=== PATIENT | female | born 1950 | race Caucasian/White ===

== ENCOUNTER → 2016-09-21 | Outpatient (CLI) | payer OTHER ==
[~2016-09-21] MED LIST: CALC8.5C PO; CIPR-255 PO; DICL1GEL12 TOP; HYDR-5688 PO; LACT10CA3 PO; METR-163 PO; ONDA4TAB10 SL; SIMV20TA2 PO
--- NOTE | 2016-09-21 16:38 | MAMMOGRAPHY REPORT ---
BILATERAL DIGITAL SCREENING MAMMOGRAM WITH CAD: 09/21/2016 CLINICAL HISTORY: Routine screening. Patient has no complaints. TECHNIQUE: Bilateral CC and MLO views were obtained. Current study was also evaluated with a Comput er Aided Detection (CAD) system. COMPARISON: Comparison is made to exams dated: 09/18/2015 mammogram, 09/13/2013 mammogram, 09/14/2014 mammogram, 09/07/2012 mammogram, 09/07/2011 mammogram, and 09/10/2010 mammogram - [facility]. BREAST COMPOSITION: There are scattered areas of fibroglandular density in both breasts. FINDINGS: There are stable bilateral round and punctate microcalcifications. No suspicious mass, ar chitectural distortion or cluster of microcalcifications is seen. IMPRESSION: ACR BI-RADS CATEGORY 1: NEGATIVE There is no mammographic evidence of malignancy. A 1 year screening mammogram is recommended. The p atient will receive written notification of the results. Approximately 10% of breast cancers are not detected with mammography. A negative mammographic repor t should not delay biopsy if a clinically suggestive mass is present. Marilu Quezada M.D. ay/:09/21/2016 16:23:16 Boat Dispatcher: Taya JIMENEZ(Kristian)(Shital), [facility] letter sent: Normal 1/2 BI-RADS Code: ACR BI-RADS Category 1: Negative
== END | disposition home or self-care (01) ==
LOC: C.MAMM 09:42
PROVIDERS: ATTEND Family Medicine
DX: Z12.31 Encounter for screening mammogram for malignant neoplasm of breast (principal)

== ENCOUNTER 2016-10-10 01:01 | Emergency (ER) | payer OTHER ==
[~2016-10-10] VITALS: Ht 162.6 cm; Wt 68.4 kg
[~2016-10-10 01:01] MED LIST changes: -CIPR-255 PO; -DICL1GEL12 TOP; -HYDR-5688 PO; -LACT10CA3 PO; -METR-163 PO; -ONDA4TAB10 SL
[2016-10-10 01:02] VITALS: TEMP 37.2; Ht 162.6 cm; Wt 68.4 kg
[2016-10-10] MEDS ORDERED: SODIUM CHLORIDE 0.9% 1000ML 1,000 ML IV STA (01:18)
[2016-10-10] MEDS ORDERED: ONDANSETRON INJ 2 MG/ML 2 ML VIAL IV STA (01:18)
[2016-10-10] MEDS ORDERED: MoRPHine SULFATE 4 MG/ML 1 ML CARP\\VIAL IV STA ×2 (01:18→02:34)
[2016-10-10] MEDS ORDERED: OPTIRAY 320 IV PRN (01:30)
[2016-10-10 01:41] LABS: HEMATOCRIT 37.8 % (37-47); MEAN CORPUSCULAR HEMOGLOBIN 30.5 pg (25-34); MEAN CORPUSCULAR HGB CONC 33.9 g/dl (32-36); MEAN PLATELET VOLUME 10.1 fL (7.4-10.4); PLATELET COUNT 249 K/uL (130-400); WHITE BLOOD COUNT 17.08 K/uL (4.8-10.8)
[2016-10-10] MEDS ORDERED: LACT10CA3 PO (01:48)
[2016-10-10] MEDS ORDERED: DICL1GEL12 TOP (01:48)
[2016-10-10 02:01] LABS: BUN/CREATININE RATIO 17.6 (10-20); CALCIUM 9.3 mg/dl (8.5-10.1); CREATININE 0.69 mg/dl (0.60-1.20); POTASSIUM 3.4 mmol/L (3.5-5.1)
[2016-10-10 02:03] LABS: ALB/GLOB RATIO 1.1 (0.9-2); URINE APPEARANCE CLEAR (CLEAR); URINE COLOR DK YELLOW; URINE EPITHELIAL CELL AUTO >30 /lpf (0-5); URINE NITRITE NEG (NEG); URINE SPECIFIC GRAVITY 1.021 (1.000-1.030); UROBILINOGEN NEG (NEG); ZZUR CULT IF INDIC CLEAN CATCH NO
[2016-10-10 02:04] LABS: BASO % 0.2 %; BASO ABS # 0.03 K/uL (0-0.2); COMPLETE YES; EOS % 0.4 %; IG% 0.2 %; LYMPH % 10.9 %; LYMPH ABS # 1.87 K/uL (1.2-3.4); MONO % 9.1 %; NEUT % 79.2 %
[2016-10-10 02:11] LABS: MANUAL MICROSCOPIC REQUIRED? NO; REVIEW REQ? NO; URINE BILIRUBIN NEG (NEG)
[2016-10-10] MEDS ORDERED: METRONIDAZOLE 250 MG TAB PO STA (03:38)
[2016-10-10] MEDS ORDERED: HYDR-5688 PO (03:43)
[2016-10-10] MEDS ORDERED: CIPR-255 PO (03:43)
[2016-10-10] MEDS ORDERED: ONDA4TAB10 SL (03:43)
[2016-10-10] MEDS ORDERED: METR-163 PO (03:43)
[2016-10-10] MEDS ORDERED: CIPROFLOXACIN 500MG HOME PACK PO ONE (03:45)
[2016-10-10] MEDS ORDERED: ONDANSETRON HOME PACK 4MG OD TAB PO ONE (03:45)
[2016-10-10] MEDS ORDERED: NORCO 5/325MG HOME PACK PO ONE (03:45)
--- NOTE | 2016-10-10 03:46 | EMERGENCY ROOM VISIT NOTE ---
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 reports nausea, no vomiting. states she has had cloudy urine. reprots constipation and diarrhea before she came. abd soft, tender in left lower quad. History of Present Illness The patient is a 66 year old female who presents to the Emergency Room with complaints of lower abdominal cramping. The patient states that she has had pain for the past 3 days. She reports it as a cramping sensation in her lower abdomen and is worse on the left side. She rates the discomfort a 6/10. The pain is slightly worse when she is lying down. She has been nauseous, but denies any vomiting. She reports she has been mildly constipated. She denies any fevers/chills. She has had a decreased appetite. She denies urinary symptoms or blood in the stools. She denies any history of abdominal surgery. Review of Systems A complete 10-point Review of Systems was discussed with the patient, with pertinent positives and negatives listed in the History of Present Illness. All remaining Review of Systems questions can be considered negative unless otherwise specified. Past Medical/Surgical History Medical Problems: (1) Hyperlipidemia (2) Hysterectomy Social History Smoking Status: Former Smoker Housing Status: lives with family Current/Historical Medications Scheduled Ciprofloxacin Hcl (Cipro), 500 MG PO BID Lactobacillus-Inulin (Culturelle), 1 CAP PO DAILY Metronidazole (Flagyl), 500 MG PO TID Ondasetron Odt (Zofran Odt), 4 MG SL Q6H Simvastatin (Zocor), 20 MG PO QPM Scheduled PRN Diclofenac Sodium (Topical) (Voltaren 1% Top Gel), 1 APPLN TOP BID PRN for ARTHRITIC PAIN Hydrocodone/Acetaminophen 5MG/325MG (Shell 5MG/325MG), 1-2 TABLET PO Q4H PRN for Pain Allergies Coded Allergies: No Known Allergies (Verified , 10/10/16) Physical Exam Vital Signs Date Time Temp Pulse Resp B/P Pulse Ox O2 Delivery O2 Flow Rate FiO2 10/10/16 04:39 83 18 130/83 95 10/10/16 03:51 78 18 151/82 94 Room Air 10/10/16 02:33 78 18 166/88 95 Room Air 10/10/16 01:57 79 18 94 Room Air 10/10/16 01:02 37.2 87 18 166/92 97 Room Air Physical Exam VITALS: Vitals are noted on the nurse's note and reviewed by myself. Vital signs stable. GENERAL: This is a 66-year-old female, in no acute distress, nondiaphoretic, well-developed well-nourished. SKIN: Capillary reflex less than 2 seconds. HEENT: Normocephalic. PERRLA. EOMI. Nares patent. Mucous membranes moist. Neck is supple without nuchal rigidity. HEART: Regular rate and rhythm without murmurs gallops or rubs. LUNGS: Clear to auscultation bilaterally without wheezes, rales or rhonchi. ABDOMEN: Positive bowel sounds x 4. Soft, nondistended. There is moderate tenderness to palpation of the left lower quadrant. No guarding or rebound tenderness. NEURO: Patient was alert and oriented to person place and time. Medical Decision & Procedures ER Provider Diagnostic Interpretation: CT ABDOMEN & PELVIS: Acute diverticulitis at the junction of the descending and sigmoid colon with colonic wall thickening and pericolonic edema. No free air. No evidence of abscess. Radiologist: Gem Paz M.D. Laboratory Results 10/10/16 01:27 Red Blood Count 4.20, Mean Corpuscular Volume 90.0, Mean Corpuscular Hemoglobin 30.5, Mean Corpuscular Hemoglobin Concent 33.9, Mean Platelet Volume 10.1, Neutrophils (%) (Auto) 79.2, Lymphocytes (%) (Auto) 10.9, Monocytes (%) (Auto) 9.1, Eosinophils (%) (Auto) 0.4, Basophils (%) (Auto) 0.2, Neutrophils # (Auto) 13.53, Lymphocytes # (Auto) 1.87, Monocytes # (Auto) 1.55, Eosinophils # (Auto) 0.06, Basophils # (Auto) 0.03 10/10/16 01:27 Test 10/10/16 01:27 White Blood Count 17.08 K/uL (4.8-10.8) Red Blood Count 4.20 M/uL (4.2-5.4) Hemoglobin 12.8 g/dL (12.0-16.0) Hematocrit 37.8 % (37-47) Mean Corpuscular Volume 90.0 fL (80-100) Mean Corpuscular Hemoglobin 30.5 pg (25-34) Mean Corpuscular Hemoglobin Concent 33.9 g/dl (32-36) Platelet Count 249 K/uL (130-400) Mean Platelet Volume 10.1 fL (7.4-10.4) Neutrophils (%) (Auto) 79.2 % Lymphocytes (%) (Auto) 10.9 % Monocytes (%) (Auto) 9.1 % Eosinophils (%) (Auto) 0.4 % Basophils (%) (Auto) 0.2 % Neutrophils # (Auto) 13.53 K/uL (1.4-6.5) Lymphocytes # (Auto) 1.87 K/uL (1.2-3.4) Monocytes # (Auto) 1.55 K/uL (0.11-0.59) Eosinophils # (Auto) 0.06 K/uL (0-0.5) Basophils # (Auto) 0.03 K/uL (0-0.2) RDW Standard Deviation 40.1 fL (36.4-46.3) RDW Coefficient of Variation 12.2 % (11.5-14.5) Immature Granulocyte % (Auto) 0.2 % Immature Granulocyte # (Auto) 0.04 K/uL (0.00-0.02) Urine Color DK YELLOW Urine Appearance CLEAR (CLEAR) Urine pH 5.0 (4.5-7.5) Urine Specific [place] 1.021 (1.000-1.030) Urine Protein NEG (NEG) Urine Glucose (UA) NEG (NEG) Urine Ketones 3+ (NEG) Urine Occult Blood 2+ (NEG) Urine Nitrite NEG (NEG) Urine Bilirubin NEG (NEG) Urine Urobilinogen NEG (NEG) Urine Leukocyte Esterase NEG (NEG) Urine WBC (Auto) 1-5 /hpf (0-5) Urine RBC (Auto) 0-4 /hpf (0-4) Urine Hyaline Casts (Auto) 1-5 /lpf (0-5) Urine Epithelial Cells (Auto) >30 /lpf (0-5) Urine Bacteria (Auto) NEG (NEG) Anion Gap 9.0 mmol/L (3-11) Est Creatinine Clear Calc Drug Dose 74.2 ml/min Estimated GFR () 103.7 Estimated GFR (Non- 89.4 BUN/Creatinine Ratio 17.6 (10-20) Calcium Level 9.3 mg/dl (8.5-10.1) Total Bilirubin 1.4 mg/dl (0.2-1) Aspartate Amino Transf (AST/SGOT) 13 U/L (15-37) Alanine Aminotransferase (ALT/SGPT) 20 U/L (12-78) Alkaline Phosphatase 76 U/L (45-117) Total Protein 7.5 gm/dl (6.4-8.2) Albumin 3.9 gm/dl (3.4-5.0) Globulin 3.6 gm/dl (2.5-4.0) Albumin/Globulin Ratio 1.1 (0.9-2) Lipase 128 U/L (73-393) Medications Administered Medications (Trade) Dose Ordered Sig/Flori Route Start Time Stop Time Status Last Admin Dose Admin Sodium Chloride (Nss 1000ml) 1,000 ml @ 999 mls/hr Q1H1M STAT IV 10/10/16 01:18 10/10/16 02:18 DC 10/10/16 01:51 999 MLS/HR Ondansetron HCl (Zofran Inj) 4 mg NOW STAT IV 10/10/16 01:18 10/10/16 01:21 DC 10/10/16 01:50 4 MG Morphine Sulfate (MoRPHine SULFATE INJ) 4 mg NOW STAT IV 10/10/16 01:18 10/10/16 01:21 DC 10/10/16 01:50 4 MG Morphine Sulfate (MoRPHine SULFATE INJ) 4 mg NOW STAT IV 10/10/16 02:34 10/10/16 02:35 DC 10/10/16 02:40 4 MG Ciprofloxacin (Cipro 500MG Home Pack) 1 homepack UD ONCE PO 10/10/16 03:45 10/10/16 03:46 DC 10/10/16 04:26 1 HOMEPACK Metronidazole (Flagyl Tab) 1,000 mg NOW STAT PO 10/10/16 03:38 10/10/16 03:41 DC 10/10/16 04:32 1,000 MG Acetaminophen/ Hydrocodone Bitart (Shell 5/325mg Home Pack) 1 homepack UD ONCE PO 10/10/16 03:45 10/10/16 03:46 DC 10/10/16 04:25 1 HOMEPACK Ondansetron HCl (ZOFRAN ODT 4MG Home Pack) 1 homepack UD ONCE PO 10/10/16 03:45 10/10/16 03:46 DC 10/10/16 04:24 1 HOMEPACK ED Course The patient was evaluated as above. Labs were drawn and IV access was obtained. Patient was medicated with 4 mg morphine IV, 4 mg Zofran IV, and 1 L normal saline solution. CT of the abdomen and pelvis was performed and read by radiology as above. Patient was reevaluated and had continued pain. She was given 4 mg morphine. Patient was reevaluated and was much more comfortable. Findings were discussed. She was given home packs of Cipro and Flagyl. Discharge instructions were reviewed with the patient. The patient verbalized understanding of my assessment and treatment plan and was discharged home in good condition. Medical Decision Differential diagnosis includes diverticulitis, appendicitis, colitis, gastroenteritis, among others. The patient is a 66-year-old female who presents today complaining of left lower quadrant pain. Labs revealed a leukocytosis of 17,000. No concerning anemia or electrolyte abnormalities. Urinalysis was not suggestive of infection. CT scan showed diverticulitis without complication. The patient prefers to be treated as an outpatient. Conservative measures were discussed. She will be placed on Cipro and Flagyl and was instructed to follow-up with her primary care provider. The patient was independently evaluated by Dr. Lunsford, ED attending physician, who agreed with my assessment and treatment plan. Based on the patient's presentation and work up, I feel the patient is stable for outpatient treatment. The patient was educated to the emergency department for any worsening of their current condition or new/concerning symptoms. She will follow up with her PCP. Impression Primary Impression: Diverticulitis Departure Information Dispostion Home / Self-Care Condition GOOD Prescriptions Ondasetron Odt (ZOFRAN ODT) 4 Mg Tab 4 MG SL Q6H for Nausea, #15 TAB Prov: Shahla Pineda PA-C 10/10/16 Hydrocodone/Acetaminophen 5MG/325MG (Shell 5MG/325MG) Tab 1-2 TABLET PO Q4H Y for Pain, #15 TAB For Initial Treatment Prov: Shahla Pineda PA-C 10/10/16 Metronidazole (Flagyl) 500 Mg Tab 500 MG PO TID for 12 Days, #36 TAB Prov: Shahla Pineda .PITER 10/10/16 Ciprofloxacin Hcl (CIPRO) 500 Mg Tab 500 MG PO BID for 12 Days, #24 TAB Prov: Shahla Pineda PA-C 10/10/16 Referrals No Doctor, Assigned (PCP) Patient Instructions My [facility] Additional Instructions You have been treated in the Emergency Department for diverticulitis. Laboratory results and imaging studies have ruled out any emergent causes for your abdominal pain which would warrant admission or surgery. You have been prescribed Shell to be used for pain control. This is a narcotic medication. You cannot drive or consume alcohol while on this medicine. This medicine should only be used for pain that cannot be controlled with over-the- counter pain medicines. You have been prescribed Zofran to be used for any nausea or vomiting. Take as prescribed. You were prescribed ciprofloxacin to be taken twice daily as prescribed. This is an antibiotic. All antibiotics have the potential to cause diarrhea. Stop this medication and contact a medical provider if you were to develop any significant adverse side effects including: wheezing, shortness of breath, passing out, vomiting, or a diffuse rash. Always take antibiotics as directed and COMPLETE the ENTIRE course regardless of the improvement of your symptoms. You were prescribed Flagyl to be taken 3 times daily as prescribed. This is an antibiotic. All antibiotics have the potential to cause diarrhea. Stop this medication and contact a medical provider if you were to develop any significant adverse side effects including: wheezing, shortness of breath, passing out, vomiting, or a diffuse rash. Always take antibiotics as directed and COMPLETE the ENTIRE course regardless of the improvement of your symptoms. You may not drink alcohol taking this medication. Drinking alcohol will cause severe nausea and vomiting. For pain control, you can use the following [id number]-plb-sjywfek medicines (if >12 yo): - Regular strength (325mg/tab) Tylenol (acetaminophen) 2 tabs every 4-6 hours as needed. Do not exceed 12 tablets in a 24 hour period. Avoid taking more than 4 grams (4000 mg) of Tylenol per day. This includes any other sources of acetaminophen you may take on a regular basis. - Regular strength (200 mg/tab) Advil (ibuprofen) 1-2 tabs every 4-6 hours as needed. Do not exceed a dose of 3200 mg per day. Clear liquid diet for the next 3-4 days, then advance to solid foods as tolerated. As with any trip to the Emergency Department, you should follow-up with your Primary Care Provider from today's visit. Return to the emergency department if your symptoms persist despite treatment plan outlined above or if the following symptoms occur: Worsening pain, vomiting or fevers. Problem Qualifiers Primary Impression: Diverticulitis Diverticulitis site: large intestine Diverticulitis bleeding: without bleeding Diverticulitis complication: without perforation or abscess Qualified Codes: K57.32 - Diverticulitis of large intestine without perforation or abscess without bleeding
[2016-10-10] MEDS ORDERED: EMPTY 8 DRAM VIAL ONE (03:56)
--- NOTE | 2016-10-10 04:25 | EMERGENCY ROOM VISIT NOTE ---
ED Visit Note First contact with patient: 01:10 I saw this patient in conjunction with Shahla Pineda PA-C. I agree with her decision-making and treatment plan.
[2016-10-10 04:39] VITALS: BP 130/83; PULSE 83; O2SAT 95
--- NOTE | 2016-10-10 07:14 | DIAGNOSTIC IMAGING REPORT ---
CT ABD/PELVIS IV CONTRAST ONLY CLINICAL HISTORY: Left lower quadrant abdominal pain COMPARISON STUDY: 11/16/2012 TECHNIQUE: Following the IV administration of 91 mL of Optiray-320, CT scan of the abdomen and pelvis was performed from the lung bases to the proximal femurs. Images are reviewed in the axial, sagittal, and coronal planes. IV contrast was administered without complication. CT DOSE: 308.58 mGy.cm FINDINGS: Lower chest: There is mild basilar atelectasis. Liver: There is mild hepatic steatosis. No focal masses are visualized. The portal vein appears patent. Gallbladder: Unremarkable. Spleen: Normal in size and attenuation. Pancreas: The pancreatic duct remains at the upper limits of normal in size. Masses are visualized. Adrenal glands: Unremarkable. Kidneys: There is symmetric renal cortical enhancement. The kidneys are normal in size without hydronephrosis. Bowel: There are no transition zones indicate bowel obstruction. There is acute diverticulitis at the descending sigmoid: junction. There is no acute appendicitis. Peritoneum: There is no free air. There is trace free pelvic fluid. Vasculature: The abdominal aorta is normal in course and caliber. Adenopathy: None. Pelvic viscera: The uterus appears surgically absent Skeletal structures: No destructive osseous lesions are seen. IMPRESSION: 1. Acute diverticulitis at the junction of descending and sigmoid colon. Electronically signed by: Mahesh Solis M.D. 10/10/2016 7:12 AM Dictated Date/Time: 10/10/2016 7:08 AM
== END 2016-10-10 04:39 | disposition home or self-care (01) ==
LOC: C.EDB 01:01 → C.EDA 04:39
DX: K57.32 Diverticulitis of large intestine without perforation or abscess without bleeding (principal); E78.5 Hyperlipidemia, unspecified; Z87.891 Personal history of nicotine dependence; Z79.899 Other long term (current) drug therapy

== ENCOUNTER → 2017-04-26 | Outpatient (CLI) | payer OTHER ==
[~2017-04-26] MED LIST changes: -CALC8.5C PO; +CIPR-255 PO; +DICL1GEL12 TOP; +LACT10CA3 PO
--- NOTE | 2017-04-26 08:27 | DIAGNOSTIC IMAGING REPORT ---
R FOOT MIN 3 VIEWS, L FOOT MIN 3 VIEWS HISTORY: 67 years-old Female RIGHT FOOT PAIN acute bilateral foot pain without reported trauma COMPARISON: Right foot radiograph 09/02/2015 TECHNIQUE: 3 views of the bilateral feet for a total of 6 images. FINDINGS: RIGHT: Accessory ossicle or focal marginal osteophytic spurring is again noted involving the medial base of the second metatarsal. The bones are mildly demineralized. Mild calyx valgus deformity with moderate first MTP joint degenerative changes. Moderate degenerative changes are seen throughout the midfoot at the tarsometatarsal joints. Mild soft tissue swelling is noted about the midfoot, greatest adjacent to the fifth MTP joint. Moderate plantar calcaneal enthesophyte. Peripheral vascular calcifications. LEFT: No acute fracture or dislocation. Soft tissue swelling is also noted about the left midfoot greatest near the fifth MTP joint. Moderate first MTP joint degenerative changes. Mild hallux valgus deformity. 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 No acute fracture or dislocation. Moderate plantar enthesophyte about the calcaneus. Vascular calcifications are noted. IMPRESSION: 1. No acute fracture or dislocation of either foot. 2. Mild bilateral hallux valgus deformity with osteopenia and multifocal mild to moderate degenerative changes. 3. Mild soft tissue swelling is noted about the forefoot bilaterally, greatest near the fifth MTP joints. 4. Peripheral vascular disease. The above report was generated using voice recognition software. It may contain grammatical, syntax or spelling errors. Electronically signed by: Meliton Cohen M.D. 04/26/2017 8:25 AM Dictated Date/Time: 04/26/2017 8:21 AM
== END | disposition home or self-care (01) ==
LOC: C.RDSM 08:55
PROVIDERS: ATTEND Physician Assistant
DX: M79.673 Pain in unspecified foot (principal); I73.9 Peripheral vascular disease, unspecified

== ENCOUNTER → 2017-09-27 | Outpatient (CLI) | payer OTHER ==
--- NOTE | 2017-09-28 07:40 | MAMMOGRAPHY REPORT ---
BILATERAL DIGITAL SCREENING MAMMOGRAM TOMOSYNTHESIS WITH CAD: 09/27/2017 CLINICAL HISTORY: Routine screening. Patient has no complaints. TECHNIQUE: Breast tomosynthesis in addition to standard 2D mammography was performed. Current study was also evaluated with a Computer Aided Detection (CAD) system. COMPARISON: Comparison is made to exams dated: 09/21/2016 mammogram, 09/18/2015 mammogram, 09/14/2014 ma mmogram, 09/13/2013 mammogram, 09/07/2011 mammogram, and 09/10/2010 mammogram - [facility]ter. BREAST COMPOSITION: There are scattered areas of fibroglandular density in both breasts. FINDINGS: There are stable intramammary lymph nodes in the lateral left breast. No suspicious mass, architectural distortion or cluster of microcalcifications is seen. IMPRESSION: ACR BI-RADS CATEGORY 1: NEGATIVE There is no mammographic evidence of malignancy. A 1 year screening mammogram is recommended. The pa tient will receive written notification of the results. Approximately 10% of breast cancers are not detected with mammography. A negative mammographic report should not delay biopsy if a clinically suggestive mass is present. Marilu Quezada M.D. ay/:09/27/2017 08:57:20 Investment Professional: Ana JIMENEZ(Kristian)(Shital), [facility] letter sent: Normal 1/2 BI-RADS Code: ACR BI-RADS Category 1: Negative
== END | disposition home or self-care (01) ==
LOC: C.MAMM 08:20
PROVIDERS: ATTEND Family Medicine
DX: Z12.31 Encounter for screening mammogram for malignant neoplasm of breast (principal)

== ENCOUNTER 2023-08-01 12:43 | Inpatient (IN) ==
--- OUTSIDE RECORDS SUMMARY | 2023-08-01 12:48 | External Medical Summary | Summary of Care ---
Author Name Unknown Organization [facility] Address [address] [place] [address] Phone [phone] Care Team Providers Care Manager Employee Relations Name Role Phone Elijah Whittaker MD Primary Care Provider + Reason for Visit * Reason Onset Date Comments Pre Op Discussion 03/17/2023 PAT call Encounter Details Date Type Department Care Team Description 03/17/2023 Telephone OR [facility], Operating Room [facility] [address] [place] [phone] Raheem Yañez MD [facility] [address] Connelly [address] [address] Pre Op Discussion (PAT call) Allergies No known active allergiesdocumented as of this encounter (statuses as of 03/18/2023) Medications Medication Sig Dispensed Refills Start Date End Date Status Diclofenac Sodium 1 % External Gel (Voltaren) APPLY 4 TIMES A DAY NEEDED FOR PAIN NOT TO EXCEED 16 GRAMS TO SINGLE JOINT A DAY 100 g 2 10/15/2021 Active Simvastatin 20 MG Oral Tablet (Zocor)Indications:Dy slipidemia, goal LDL below 100 TAKE 1 TABLET BY MOUTH IN THE EVENING 90 Tablet 0 01/18/2023 Active documented as of this encounter (statuses as of 03/18/2023) Active Problems Problem Noted Date Diverticulitis of colon 03/09/2023 History of 2019 novel coronavirus diseas e (COVID-19) 07/10/2021 Overview: 07/12 vaccinated. 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 Referred for surgery [facility] 2nd opinion Well adult exam 11/15/2018 Overview: Her insurance requires "Dx" code for labs, not screening. 01/08 colon 10mm polyp PATH PEND gavino 3y? History of colon polyps 09/28/2018 Dyslipidemia, goal LDL below 100 011 documented as of this encounter (statuses as of 03/18/2023) Resolved Problems Problem Noted Date Resolved Date Dyslipidemia, goal to be determined 05/30/2009 06/12/2011 Overview: Per Lipid Taxonomy. FAMILY HX- multiple sclerosis: brother, m. 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 ADVANCE DIRECTIVE INFORMATION 02/18/2006 Overview: Pt has a living will and a copy will be supplied, NO KNOWN PROBLEMS 03/09/2005 02/19/2006 documented as of this encounter (statuses as of 03/18/2023) Immunizations Name Administration Dates Next Due COVID-19 mRNA, LNP-s, No Pre serve, 2-Dose Series ([employer]) 03/19/2021,09/14/2020,08/19/2020 COVID-19, LNP-s, No Preserve , Cliff-sucrose, Ages 12+ (Pfizer) 09/30/2021 Covid-19, Mrna, Lnp-s, Pf, B ivalent, 30 Mcg, IM, 12 yrs and above (Pfizer) 06/10/2022 Pneumococcal Conjugate Vacc, 13 Valent (Prevnar) 06/01/2016 Seasonal Influenza, PF, 6 mo ns & Above, IM , (Flulaval) 03/07/2020,04/18/2018,03/15/2017 Seasonal Influenza, Quadriva lent Hd (Fluzone Hd) 03/01/2023,03/23/2022,03/12/2021 Seasonal Influenza, Quadriva lent, No Preserve, IM 03/18/2016 Seasonal Influenza, Split, I IV3, With Preserve, Inj 03/06/2015,03/13/2014,04/11/2013,2011 Seasonal Influenza, Trivalen t, Adjuvanted, 65+ yrs 03/29/2019 TDAP (age 10 and older)(Boostrix) 03/14/2019, Varicella Zoster Vaccine (Adult) 02/27/2011 Zoster Vaccine Recombinant (Shingrix) 06/23/2019 ,04/05/2019 documented as of this encounter Social History Tobacco Use Types Packs/Day Years Used Date Smoking Tobacco: Former Cigarettes 7 Q uit: 06/21/1972 Smokeless Tobacco: Never Comments:smoked for 7 yrs an d quit 1972. Alcohol Use Standard Drinks/Week Comments Yes 0 (1 standard drink = 0.6 oz pur e alcohol) 2-3 beers per night Food Insecurity Answer Date Recorded Within the past 12 months, y ou worried that your food would run out before you got money to buy more. Never true 03/14/2019 Within the past 12 months, t he food you bought just didn't last and you didn't have money to get more. Never true 03/14/2019 Sex Assigned at Date Recorded Not on file Job Start Date Occupation Industry Not on file Not on file Not on file documented as of this encounter Plan of Treatment Upcoming Encounters Date Type Specialty Care Team Description 03/23/2023 Hospital Encounter Surgery Raheem Yañez MD [address] [place] [address], [place] [id number] 03/23/2023 Surgery Surgery Raheem Yañez MD [address] [place] [address], [place] [address] RIGHT EXTRACAPSULAR CATARACT REMOVAL WITH INTRAOCULAR LENS 04/06/2023 Hospital Encounter Surgery Raheem Yañez MD [address] [address] 04/06/2023 Surgery Surgery Raheem Yañez MD [address] [address] LEFT EXTRACAPSULAR CATARACT REMOVAL WITH INTRAOCULAR LENS Scheduled Procedures Name Priority Associated Diagnoses Date/Ti me EXTRACAPSULAR CATARACT REMOVAL WITH INTRAOCULAR LENS Combined forms of age-related cataract of right eye 03/23/2023 2:14 PM EDT EXTRACAPSULAR CATARACT REMOVAL WITH INTRAOCULAR LENS Combined forms of age-related cataract of left eye 04/06/2023 3:38 PM EDT COLONOSCOPY FLEXIBLE PROXIMAL DIAGNOSTIC Recall History of colon polyps Health Maintenance Due Date Last Done Comments Hepatitis C Screening 1968 Pneumococcal Vaccine: 65+ Years (2 - PPSV23 or PCV20) 06/01/2017 06/01/2016 Depression Screening 08/14/2021 08/14/2020 DXA Scan 06/02/2023 06/02/2016 Mammogram 01/07/2024 01/06/2023, 12/19, 08/11/2021, Additional history exists COLONOSCOPY-EVERY 5 YRS AGES 18-100 01/07/2026 01/07/2021, 01/07/2021, 07/01/2015, Additional history exists Lipid Panel 11/28/2026 11/28/2021, 04/0 02/2019, 06/01/2016, Additional history exists DTaP,Tdap,and Td Vaccines (3 - Td or Tdap) 03/14/2029 03/14/2019, 04/14/2013 Zoster Vaccines Completed 06/23/2019, 03/21, 02/27/2011 COVID-19 Vaccine Completed 06/10/2022, 05/2022, 03/19/2021, Additional history exists Influenza Vaccine (FLU shot) Completed 04/2023, 03/23/2022, 03/12/2021, Additional history exists GARDASIL-HPV IMMUNIZATION SERIES Aged Out No longer eligible based on patient's age to complete this topic Hepatitis B Aged Out No longer eligi ble based on patient's age to complete this topic MENINGOCOCCAL (MENACTRA/MENVEO) Aged Out No longer eligible based on patient's age to complete this topic documented as of this encounter Medical Devices Implanted Type Area Strainer Tender Device Identifier Shelf Expiration Date Model / Serial / Lot Clip Quick 2.8mm 230cm - [id number] Implanted:Qty: 1 on 01/07/2021 by Nico Crisostomo MD at ENDOSCOPY [facility] Colon [employer] 08/19/2023 [id number]-202UR.[id number] / [id number] documented as of this encounter Care Teams Manager Employee Relations Relationship Specialty Start Date End Date Elijah Whittaker MD [address] [place] [address] PCP - General Family Medicine 06/29/16 documented as of this encounter
--- OUTSIDE RECORDS SUMMARY | 2023-08-01 12:48 | External Medical Summary | Summary of Care ---
Author Name Unknown Organization [facility] Address [address] [place] [facility] [place] [address] Phone [phone] Care Team Providers Care Raw Products Director Name Role Phone Elijah Whittaker MD Primary Care Provider + Encounter Details Date Type Department Care Team Description 03/01/2023 [facility] [address] [facility] [address] [facility] [address] Arrived Allergies No known active allergiesdocumented as of this encounter (statuses as of 03/01/2023) Medications Medication Sig Dispensed Refills Start Date [...] as of this encounter (statuses as of 03/01/2023) Active Problems Problem Noted Date History of 2019 novel coronavirus diseas e (COVID-19) 07/10/2021 Overview: 07/12 vaccinated. 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 Referred for surgery [facility] 2nd opinion Well adult exam 11/15/2018 Overview: Her insurance requires "Dx" code for labs, not screening. 01/08 colon 10mm polyp PATH PEND gavino 3y? History of colon polyps 09/28/2018 Dyslipidemia, goal LDL below 100 011 documented as of this encounter (statuses as of 03/01/2023) Resolved Problems Problem Noted Date Resolved Date [...] as of this encounter (statuses as of 03/01/2023) Immunizations Name Administration Dates Next Due COVID-19 mRNA, LNP-s, No Pre serve, 2-Dose Series ([employer]) 03/19/2021,09/14/2020,08/19/2020 COVID-19, LNP-s, No Preserve , Cliff-sucrose, [...] Surgery Raheem Yañez MD [address] [place] [address] 03/23/2023 Surgery Surgery Raheem Yañez MD [address] [place] [address], [place] [address] RIGHT EXTRACAPSULAR CATARACT REMOVAL WITH INTRAOCULAR LENS 04/06/2023 Hospital Encounter Surgery Raheem Yañez MD [address] [place] [address] 04/06/2023 Surgery Surgery Raheem Yañez MD [address] [place] [address] LEFT EXTRACAPSULAR CATARACT REMOVAL WITH INTRAOCULAR LENS Scheduled Procedures Name Priority Associated Diagnoses Date/Ti me EXTRACAPSULAR CATARACT REMOVAL WITH INTRAOCULAR LENS Combined forms of age-related cataract of right eye 03/23/2023 2:50 PM EDT EXTRACAPSULAR CATARACT REMOVAL WITH INTRAOCULAR LENS Combined forms of age-related cataract of left eye 04/06/2023 10:35 AM EDT COLONOSCOPY FLEXIBLE PROXIMAL DIAGNOSTIC Recall History of colon polyps Health Maintenance Due Date Last Done Comments Hepatitis C Screening 1968 Pneumococcal Vaccine: 65+ Years (2 - PPSV23 or PCV20) 06/01/2017 06/01/2016 Depression Screening 08/14/2021 08/14/2020 Influenza Vaccine (FLU shot) (#1) 2023 03/01/2023, 03/23/2022, 03/12/2021, Additional history exists DXA Scan 06/02/2023 06/02/2016 Mammogram 01/07/2024 01/06/2023, 12/19, 08/11/2021, Additional history exists COLONOSCOPY-EVERY 5 YRS AGES 18-100 01/07/2026 01/07/2021, 01/07/2021, 07/01/2015, Additional history exists Lipid Panel 11/28/2026 11/28/2021, 04/0 02/2019, 06/01/2016, Additional history exists DTaP,Tdap,and Td Vaccines (3 - Td or Tdap) 03/14/2029 03/14/2019, 04/14/2013 Zoster Vaccines Completed 06/23/2019, 03/21, 02/27/2011 COVID-19 Vaccine Completed 06/10/2022, 05/2022, 03/19/2021, Additional history exists GARDASIL-HPV IMMUNIZATION SERIES Aged Out No longer eligible based on patient's age to complete this topic Hepatitis B Aged Out No longer eligi ble based on patient's age to complete this topic MENINGOCOCCAL (MENACTRA/MENVEO) Aged Out No longer eligible based on patient's age to complete this topic documented as of this encounter Medical Devices Implanted Type Area Industrial Safety And Health Specialist Device Identifier Shelf Expiration Date Model / Serial / Lot Clip Quick 2.8mm 230cm - [id number] Implanted:Qty: 1 on 01/07/2021 by Nico Crisostomo MD at ENDOSCOPY [facility] Colon [employer] 08/19/2023 [id number] / [id number] documented as of this encounter Care Teams Raw Products Director Relationship Specialty Start Date End Date Elijah Whittaker MD [address] [facility] [place] [address] PCP - General Family Medicine 06/29/16 documented as of this encounter
--- OUTSIDE RECORDS SUMMARY | 2023-08-01 12:48 | External Medical Summary | Summary of Care ---
Author Name Unknown Organization [facility] Address [address] [facility] [place] [address] Phone [phone] Care Team Providers Care Saw Sharpener Name Role Phone Elijah Whittaker MD Primary Care Provider + Encounter Details Date Type Department Care Team (Late st Contact Info) Description 04/12/2023 10:30 AM EDT Immunization [facility] [address] [facility] [address] [place] [address] Arrived Allergies No known active allergiesdocumented as of this encounter (statuses as of 04/12/2023) Medications Medication Sig Dispensed Refills Start Date [...] as of this encounter (statuses as of 04/12/2023) Active Problems Problem Noted Date Diagnosed Date Diverticulitis of colon 03/09/2023 History of 2019 novel coronavirus disease (COVID -19) 07/10/2021 Overview: 07/12 vaccinated. 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 Referred for surgery [facility] 2nd opinion Well adult exam 11/15/2018 Overview: Her insurance requires "Dx" code for labs, not screening. 01/08 colon 10mm polyp PATH PEND gavino 3y? History of colon polyps 09/28/2018 Dyslipidemia, goal LDL below 100 06/12/2011 documented as of this encounter (statuses as of 04/12/2023) Resolved Problems Problem Noted Date Diagnosed Date Resolved Date Dyslipidemia, goal to be determined 05/30/2009 06/12/2011 Overview: Per Lipid Taxonomy. FAMILY HX- multiple sclerosi s: brother, m. aunt 11/07/2008 01/05/2018 Benign neoplasm of colon 12/06/200603/2019 Overview: hyprplastic tissue and a small leiomyoma Repeat in 3 years ADVANCE DIRECTIVE INFORMATION 04/30/2006 01/05/2018 Overview: Yes, Patient instructed to provide copy of advance directive for provider to review and to be scanned into Electronic Medical Record PURE HYPERCHOLESTEROLEM 02/19/200605/21 Overview: Per Lipid Taxonomy. ADVANCE DIRECTIVE INFORMATION 02/18/2006 02/19/2006 Overview: Pt has a living will and a copy will be supplied, NO KNOWN PROBLEMS 03/09/2005 02/19/2006 documented as of this encounter (statuses as of 04/12/2023) Immunizations Name Administration Dates Next Due COVID-19 mRNA, LNP-s, No Pre serve, 2-Dose Series ([employer]) 03/19/2021,09/14/2020,08/19/2020 COVID-19, LNP-s, No Preserve , Cliff-sucrose, Ages 12+ (Pfizer) 09/30/2021 COVID-19, MRNA-LNP, 23-24, P F, 30 MCG/0.3 mL, 12 YRS AND ABOVE, IM (PFIZER-Comirnaty) 04/12/2023 Covid-19, Mrna, Lnp-s, Pf, B ivalent, 30 Mcg, IM, 12 yrs and above (Pfizer) 06/10/2022 Pneumococcal Conjugate Vacc, 13 Valent (Prevnar) 06/01/2016 SEASONAL INFLUENZA, PF, 6 M & Above, IM , (FLULAVAL or FLUZONE) 03/07/2020,04/18/2018,03/15/2017 Seasonal Influenza, Quadriva lent Hd (Fluzone [...] pur e alcohol) 2-3 beers per night PHQ-2 Answer Date Recorded PHQ Adult Total Score 0 08/14/2020 Hunger Vital Sign Answer Date Recorded Worried About Running Out of Food in the Last Ye ar Never true 03/14/2019 Ran Out of Food in the Last Year Never true 03/14/2019 Sex and Gender Information Value Date Recorded Sex Assigned at Not on file Gender Identity Not on file Sexual Orientation Not on file Job Start Date Occupation Industry Not on file Not on file Not on file documented as of this encounter Plan of Treatment Scheduled Procedures Name Priority Associated Diagnoses Date/Ti me COLONOSCOPY FLEXIBLE PROXIMAL DIAGNOSTIC Recall History of colon polyps Health Maintenance Due Date Last Done Comments Hepatitis C Screening 1968 Pneumococcal Vaccine: 65+ Years (2 - PPSV23 or PCV20) 06/01/2017 06/01/2016 Depression Screening 08/14/2021 08/14/2020 DXA Scan 06/02/2023 06/02/2016 COLONOSCOPY-EVERY 5 YRS AGES 18-100 01/07/2026 01/07/2021, 01/07/2021, 07/01/2015, Additional history exists DTaP,Tdap,and Td Vaccines (3 - Td or Tdap) 03/14/2029 03/14/2019, 04/14/2013 Zoster Vaccines Completed 06/23/2019, 03/21, 02/27/2011 Influenza Vaccine (FLU shot) Completed 04/2023, 03/23/2022, 03/12/2021, Additional history exists COVID-19 Vaccine Completed 04/12/2023, , 09/30/2021, Additional history exists GARDASIL-HPV IMMUNIZATION SERIES Aged Out No longer eligible based on patient's age to complete this topic Hepatitis B Aged Out No longer eligi ble based on patient's age to complete this topic MENINGOCOCCAL (MENACTRA/MENVEO) Aged Out No longer eligible based on patient's age to complete this topic documented as of this encounter Medical Devices Implanted Type Area Sharepoint Analyst Device Identifier Shelf Expiration Date Model / Serial / Lot Clip Quick 2.8mm 230cm - [id number] Implanted:Qty: 1 on 01/07/2021 by Nico Crisostomo MD at ENDOSCOPY [facility] Colon [employer] 08/19/2023 HX-202UR.A / / [id number] Lens [id number] 12.5mm+21.50 - [id number] - [id number] Implanted:Qty: 1 on 03/23/2023 by Raheem Yañez MD at OR [facility] Right: Eye [employer] 11/18/2025 [id number] / [id number] / [id number] [employer] Implanted:Qty: 1 on 04/06/2023 by Raheem Yañez MD at OR [facility] Left: Eye [employer] 03/20/2025 [id number] / [id number] / [id number] documented as of this encounter Advance Directives Latest Code Status on File Code Status Date Activated Date Inactivated Comments Full Code 04/06/2023 2:03 PM 04/06/2023 8:35 PM Thi s order reflects the patients wishes and were consensually agreed upon. Question Answer Comments Discussion of Advance Directives occurred with: Patient Does the patient have a Living Will? No Does the patient have Health Care Power of Data Center Manager? No Code Status History Code Status Date Activated Date Inactivated Comments Full Code 03/23/2023 1:21 PM 03/23/2023 7:17 PM This order reflects the patients wishes and were consensually agreed upon. Question Answer Comments Discussion of Advance Directives occurred with: Patient Does the patient have a Living Will? No Does the patient have Health Care Power of Data Center Manager? No Care Teams Saw Sharpener Relationship Specialty Start Date End Date Elijah Whittaker MD [address] [place] [address] PCP - General Family Medicine 06/29/16 documented as of this encounter
--- OUTSIDE RECORDS SUMMARY | 2023-08-01 12:48 | External Medical Summary | Summary of Care ---
Author Name Unknown Organization [facility] Address [address] [place] [address] Phone [phone] Care Team Providers [employer] Name Role Phone Elijah Whittaker MD Primary Care Provider + Reason for Visit * Auth/Cert Specialty Diagnoses / Procedures Referred By Contac t Referred To Contact Diagnoses Combined forms of age-related cataract of left eye Combined forms of age-related cataract of left eye [H25.812] Procedures REMOVE CATARACT, INSERT LENS PROSTH LEFT EXTRACAPSULAR CATARACT REMOVAL WITH INTRAOCULAR LENS Referral ID Status Reason Start Date Expiration Date Visits Re quested Visits Authorized [id number] Encounter Details Date Type Department Care Team Description 04/06/2023 Hospital Encounter OR [facility], Operating Room [facility] [address] [place] [id number] Raheem Yañez MD [facility] Tonny Connelly [address] [place] [address] Allergies No known active allergiesdocumented as of this encounter (statuses as of 2023) Medications Medication Sig Dispensed Refills Start Date [...] as of this encounter (statuses as of 2023) Active Problems Problem Noted Date Diverticulitis of colon 03/09/2023 History of 2018 novel coronavirus diseas e (COVID-19) 07/10/2021 Overview: 07/12 vaccinated. 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 Referred for surgery [facility] [place] Well adult exam 11/15/2018 Overview: Her insurance requires "Dx" code for labs, not screening. 01/08 colon 10mm polyp PATH PEND gavino 3y? History of colon polyps 09/28/2018 Dyslipidemia, goal LDL below 100 011 documented as of this encounter (statuses as of 2023) Resolved Problems Problem Noted Date Resolved Date [...] as of this encounter (statuses as of 2023) Immunizations Name Administration Dates Next Due COVID-19 mRNA, LNP-s, No Pre serve, 2-Dose Series (Plasticell) 03/19/2021,09/14/2020,08/19/2020 COVID-19, LNP-s, No Preserve , Cliff-sucrose, [...] on file documented as of this encounter Last Filed Vital Signs Vital Sign Reading Time Taken Comments Blood Pressure 132/63 04/06/2023 4:19 PM EDT Pulse 63 04/06/2023 4:19 PM EDT Temperature 36.7 C (98 F) 04/06/2023 4:19 PM EDT Respiratory Rate 18 04/06/2023 4:19 PM EDT Oxygen Saturation 97% 04/06/2023 4:19 PM EDT Inhaled Oxygen Concentration - - Weight 62.1 kg (137 lb) 04/06/2023 2:11 PM EDT Height 160 cm (5' 3") 03/17/2023 8:38 AM EDT Body Mass Index 24.27 03/23/2023 1:29 PM EDT documented in this encounter Discharge Instructions * Discharge Instr - AVS* Raheem Yañez MD - 03/02/2023 9:26 AM EDT Discharge Date: 04/06/23 You may call Doctor Otilio at during business hours and for after-hours emergencies. Your attending physician at the time of your discharge was: Raheem Yañez MD The information below provides you with the instructions and the list of medications you need to betaking following discharge from the hospital. If you have any questions, please ask before leaving.Please carry this letter with you when you see your doctor in the clinic. Diet: Normal diet Activity: No lifting or pushing or pulling more than 10 lbs for 1 week Driving: Do not drive for 24 hours after surgery . Date you may return to work or school: N/A Follow Up - Return appointment(s):04/07/23 @8:[address] Kumari See your medical receptionist assistant in 1day(s). SPECIAL INSTRUCTIONS EYEDROPS for healing and infection prevention. 8 am (Breakfast) 12 noon (Lunch) 6 pm (Supper) 10 pm (Bedtime) Duration PGB X X X X 1 Week PGB X X X 1 Week PGB X X 1 Week PGB X 1 Week 1. Use your eye drops 4 times on the afternoon and evening after your surgery. 2. DO NOT RUB OR PUT PRESSURE ON THE EYE for 4 weeks after surgery. 3. Please keep your surgical eye closed on the ride home and then at home for a total of 1-2 hours after surgery. 4. You may sit, walk, watch TV, read, and perform routine activities. 5. NO exercise for 2 weeks after surgery. It is OK to walk. 6. DO NOT go underwater for 2 weeks after surgery, e.g. no swimming or hot-tubs. 7. It is OK to shower, wash your face, shave, shampoo your hair the day AFTER Surgery (a few drops of water are OK). 8. Continue warm compresses for 5 minutes, 2 times per day. 9. Sleep with the shield taped over your eyes for 2 weeks after surgery. 10. NO eye make-up for 2 weeks after surgery. 11. DO NOT make any eye drop changes to your other eye. 12. Dr. Yañez suggests that all patients remain in the area for a minimum of the one week following surgery if traveling within the [place]. Patients traveling internationally should wait 4 weeks. 13. You may return to work soon after surgery; please discuss this with Dr. Yañez. 14. You can expect the following after surgery during the first 4-6 weeks. Itchiness/scratchiness around the eye. Redness in the white of the eye. Double vision/ Fluctuation in vision. Droopiness of the eyelid. 15. Your vision should gradually improve in days and weeks after surgery. If your vision is gettingworse (not better), or your eye more red, or you are having increasing pain, or you are having new floaters or flashing lights, CALL US IMMEDIATELY. IF YOU HAVE ANY PROBLEMS, QUESTIONS OR CONCERNS, DO NOT HESITATE TO CALL US AT [phone] AT ANY TIME I, Raheem Yañez MD personally performed the services described in this documentation. All medical record entries made by the scribe were at my direction and in my presence. I have reviewed the chart and agree that the record reflects my personal performance and is accurate and complete. Raheem gardner MD. 04/06/2023. 4:00 PM. 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 Discharge instructions were given to the patient. Note has been documented by Yamile Boyer on 04/06/2023 documented in this encounter H&P Notes * Raheem Yañez MD - 04/06/2023 8:15 AM EDT Images from the original note were not included. H&P DONALD Otero (Certified Registered Nurse Practitioner) Family Medicine Cosigned by: Jhon Connors DO at 03/10/23 1034 Expand All Collapse All Pre-Operative Medical Evaluation Procedure Information Type of Surgery: bilateral cataract removal Referring Physician / Surgeon: Dr Yañez Date of procedure: 03/23/2023 and 04/06/2023 Brief History of Present Illness: Presents for pre op evaluation of above-listed procedure. Reportsfeeling well and has no concerns today. She has some anxiety but feels she is managing her symptomsbetter. She was treated for diverticulitis a few weeks ago and her symptoms have resolved. She has no diarrhea and is eating and drinking normally. She walks two miles every day without any cardiopulmonary symptoms. 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 Past Medical History: has a past medical history of Benign neoplasm of colon (12/06/06) and History of 2019 novel coronavirus disease (COVID-19) (07/10/2021). Past Surgical History: has a past surgical history that includes vaginal hysterectomy, w/tube/ovary (06/21/1998); nasal surgery procedure nec (06/21/2000); EGD, Flexible, w/Biopsy (12/02/2006); Colonoscopy w/ Lesion Removal, Snare (12/02/2006); Colorectal Cancer Screen; Colon (01/08/2010 done); Colonoscopy, Diagnostic (Rectum) (07/01/2015); removal of parotid gland/tumor (Left, 11/17/2019); and Colonoscopy, Diagnostic (Rectum) (01/07/2021). Social History: reports that she quit smoking about 50 years ago. Her smoking use included cigarettes. She has never used smokeless tobacco. She reports current alcohol use. She reports that she does not use drugs. Family History: family history includes Cancer in her grandmother (paternal) and mother; Endocrine Disorder in her sister and sister; Neurological Disorder in her father. Anesthesia History Anesthesia reaction: No History of surgical complications: none Personal history of venous thromboembolic disease: none Objective Physical Exam Vitals: 03/09/23 1127 Temp: 36.5 C (97.7 F) Pulse: 74 SpO2: 97% BP: 116/68 BMI: 24.43 Physical Exam Vitals reviewed. Constitutional: Appearance: Normal appearance. HENT: Head: Normocephalic and atraumatic. Right Ear: Tympanic membrane, ear canal and external ear normal. Left Ear: Tympanic membrane, ear canal and external ear normal. Nose: Nose normal. Mouth/Throat: Mouth: Mucous membranes are moist. Eyes: Extraocular Movements: Extraocular movements intact. Conjunctiva/sclera: Conjunctivae normal. Pupils: Pupils are equal, round, and reactive to light. Cardiovascular: Rate and Rhythm: Normal rate and regular rhythm. Heart sounds: Normal heart sounds. Pulmonary: Effort: Pulmonary effort is normal. Breath sounds: Normal breath sounds. Abdominal: General: There is no distension. Palpations: Abdomen is soft. Tenderness: There is no abdominal tenderness. Musculoskeletal: Cervical back: Neck supple. Right lower leg: No edema. Left lower leg: No edema. Lymphadenopathy: Cervical: No cervical adenopathy. Skin: General: Skin is warm and dry. Capillary Refill: Capillary refill takes less than 2 seconds. Neurological: Mental Status: She is alert and oriented to person, place, and time. Psychiatric: Behavior: Behavior normal. Thought Content: Thought content normal. Surgical Risk Scoring Revised Cardiac Risk Index (RCRI) High-risk type of surgery (examples include vascular and any open intraperitoneal or intrathoracic procedures): 0=No History of ischemic heart disease (history of myocardial infarction or positive exercise test, current compliant of chest pain considered to be secondary to myocardia ischemia, use of nitrate therapy, or ECG with pathological Q waves; do not count prior coronary revascularization procedure unless one of the other criteria for ischemic heart disease is present): 0=No History of heart failure: 0=No History of cerebrovascular disease: 0=No Diabetes mellitus requiring treatment with insulin: 0=No Preoperative serum creatinine >2.0 mg/dL (177 micromol/L): 0=No Pt has revised cardiac index score of: No Risk Factors- 0.4% (95% CI: 0.1-0.8) Screening for Obstructive Sleep Apnea (STOP-BANG) Do you Snore loudly? 0=No Do you often feel Tired, Fatigued, or Sleep? 0=No Has anyone Observed you Stop Breathing or Choking/Gasping during sleep? 0=No Do you have or are you being treated for High Blood Pressure? 0=No BMI over 35? (not recorded) Age older than 50? (not recorded) Neck size large? (For males - 17 inches or larger, For females - 16 inches or larger) 0=No Male? (not recorded) Score 0-2:low risk GUERA, 3-4: intermediate risk of GUERA, 5-8: high risk GUERA 0 Assessment and Plan Pre-op evaluation No medical contraindication for cataract surgery Advise routine follow up with PCP in 6 mo Will complete form and fax to surgeon's office Copy will be placed in scanning Diverticulitis of colon resolved Anxiety state Declines treatment for now, managing ok Dyslipidemia, goal LDL below 100 Stable on statin Functional Assessment They are able to walk up a flight of stairs, walk two blocks at a moderate pace, do heavy house work like vacuuming, and grocery shop. The patient's functional status is good (greater than 4 METS). 1 MET: 4 METs: 4-10 METs: Can take care of self, such as eat, dress or use the toilet. Can walk to block or go up a flight of steps. Can do heavy house work. Surgical Risk Assessment Patient is low medical risk for the listed procedure. Medication adjustments: none Additional consults or testing: none Other Notes All notes Nursing Note from Koki Amin LPN Progress Notes from Unknown, No Physician Data Progress Notes from Unknown, No Physician Data Instructions Return in about 6 months (around 09/07/2023) for Return with Physician. Patient declined After Visit Summary Additional Documentation Vitals: BP 116/68 Pulse 74 Temp 36.5 C (97.7 F) Ht 1.6 m (5' 3") Wt 62.6 kg (137 lb 14.4 oz) SpO2 97% BMI 24.43 kg/m BSA 1.67 m Flowsheets: Nurse Rooming Tool, Priorities Wizard Content Encounter Info: Billing Info, History, Allergies, Detailed Report, Questionnaires Media From this encounter Scan on 03/24/2023 by Unknown, No Physician Data: PRE-OP/MED [facility] OUTPATIENT SURGERY DR YAÑEZ Scan on 03/23/2023 by Unknown, No Physician Data: PRE-OP/MED [facility] Patient Handouts No notes of this type exist for this encounter. Orders Placed None Medication Changes None Medication List Visit Diagnoses Pre-op evaluation Diverticulitis of colon Anxiety state Dyslipidemia, goal LDL below 100 Problem List Note has been documented by Yamile Boyer on 04/06/2023 * Raheem Yañez MD - 04/06/2023 8:15 AM EDT HISTORY & PHYSICAL INTERVAL NOTE [facility] [place] [address] [place] [address] History and Physical Update: Name: Emma Lopez Location: Room/bed info not found Date: 04/06/2023 Time:8:15 AM DATE OF HISTORY AND PHYSICAL: 03/09/23 BP: 173 mmHg/74 mmHg (04/06/23 141) Pulse: 61 (04/06/231410) Temp: 36.89 C (04/06/231410) Resp: 18 (04/06/231410) SpO2: 99 % (04/06/231410) Does patient take a beta mahad? No Did patient stop anticoagulants? No Heart Exam: regular rate and rhythm Lung Exam: clear to auscultation bilaterally Other Pertinent Physical Exam: none I have reviewed the H&P previously performed and examined the patient today. There are no new findings noted. documented in this encounter Nursing Notes * Milly Kinney RN - 04/06/2023 4:30 PM EDT Pt given d'c instructions and verbalized understanding. Pt sarah po fluids. * Milly Kinney RN - 04/06/2023 4:04 PM EDT Patient transferred to pacu 2 status post left cataract removal and lens placement. No drainage noted. Patient awake. Denies pain and nausea. Respirations are even and unlabored on room air. Abdomen soft and non distended. Vital signs stable. * Maria Del Carmen Marcos RN - 04/06/2023 2:04 PM EDT Surgical consent verified with patient. Patient agrees with listed procedure and verified signature. documented in this encounter OR Notes * OR Surgeon - Raheem Yañez MD - 04/06/2023 4:01 PM EDT [facility] [address] [address] OPERATIVE REPORT Name: Emma Lopez Date: 04/06/2023 Time: 4:01 PM Location: [facility] Service: Ophthalmology Date of Operation: 04/06/2023 Pre-op Diagnosis: Visually significant combined cataract, left eye Post-op Diagnosis: Same Operative Procedure: Phacoemulsification with posterior chamber intraocular lens implantation left eye (36633 Standard Cataract) + REFRACTIVE COMPONENT: High Astigmatism Refractive Package for Distance VISION including TORIC IOL Surgeon: Raheem Yañez MD Assistants: None Anesthesia: topical Implant/Graft: B&L: 21.0 [id number] SN: [id number] Complications: none Drains: none Urine Output: minimal Specimen and Disposition: none Estimated Blood Loss: minimal Indications: The patient has noticed a decrease in their visual acuity now interfering with their activities of daily living. Slit-lamp examination revealed a visually significant lens opacity which appears to be a significant component of the decrease in visual acuity. After discussion of risks, benefits, and alternatives, the patient has elected to proceed with cataract extraction and lens implantation. Description of Procedure: The patient was brought to the operating room. A time out was called to confirm the correct patient, the correct eye, the correct diagnosis, the correct procedure, relevant allergies and surgical considerations. The patient's eye was prepped and draped in the usual fashion. A wire lid speculum was placed between the lids. A paracentesis site was made, approximately three oclock hours away from the incision site. Intracameral lidocaine was injected into the anterior chamber. A near clear cornea incision was then made with a keratome, and then viscoelastic was injected into the anterior chamber. The patient's astigmatism was taken into account, when creating both corneal incisions, both in terms of size and placem ent in order to relax the cornea and treat the refractive astigmatism. A continuous curvilinear capsulorrhexis was created using a cystitome and Utrata forcep. Hydrodissection was then performed using balanced salt solution. The nucleus was emulsified using the phacoemulsification handpiece. The cortex was removed using the automated irrigation aspiration unit. Viscoelastic was then used to deepen the capsular bag. A posterior chamber TORIC IOL was then inserted into the capsular bag and rotated into optimal position per the pre-operative calculations. The capsular bag was polished and then excess viscoelastic was then aspirated using the irrigation aspiration unit. The wound was hydrated, tested and found to be water tight. Intracameral Moxifloxacin was given. After the post-operative drops were given, including topical antibiotic, and steroid, a shield was placed. The patient tolerated the procedure well. Condition: The patient left the operating room in good condition. Disposition: In and Out Recovery Unit Attestation: I performed the procedure Note has been documented by Yamile Boyer on 04/06/2023 documented in this encounter Plan of Treatment Upcoming Encounters Date Type Specialty Care Team Description 04/12/2023 Immunization [place], Covid19 Vaccine [facility] [address] [place] [id number] Scheduled Procedures Name Priority Associated Diagnoses Date/Ti me COLONOSCOPY FLEXIBLE PROXIMAL DIAGNOSTIC Recall History of colon polyps Health Maintenance Due Date Last Done Comments Hepatitis C Screening 1968 Pneumococcal Vaccine: 65+ Years (2 - PPSV23 or PCV20) 06/01/2017 06/01/2016 Depression Screening 08/14/2021 08/14/2020 COVID-19 Vaccine ( - 2022- season) 2023 06/10/2022, 09/30/2021, 03/19/2021, Additional history exists DXA Scan 06/02/2023 06/02/2016 [...] this encounter Medical Devices Implanted Type Area Squeak Rattle And Leak Repairer Device Identifier Shelf Expiration Date Model / Serial / Lot Clip Quick 2.8mm 230cm - [id number] Implanted:Qty: 1 on 01/07/2021 by Nico Crisostomo MD at [facility] Colon [employer] 08/19/2023 [id number] / / [id number] Lens [id number] 12.5mm+21.50 - [id number] - [id number] Implanted:Qty: 1 on 03/23/2023 by Raheem Yañez MD at [facility] Right: Eye [employer] 11/18/2025 [id number] / [id number] / [id number] [employer] Implanted:Qty: 1 on 04/06/2023 by Raheem Yañez MD at [facility] Left: Eye [employer] 03/20/2025 [id number] / [id number] / [id number] documented as of this encounter Administered Medications Inactive Administered Medications - up to 3 most recent administrations Medication Order MAR Action Action Date Dose Rate Site Diclofenac Sodium (Voltaren) 0.1 % ophthalmic solution 1 Drop 1 Drop, Left eye, Q5 MINUTES, First dose on Wed04/06/23 at 1445, Last dose on Wed04/06/23 at 1455, For 3 doses, PRE-OP: One drop to left eye every 5 minutes for 3 doses, Pre-Op Given 04/06/2023 2:23 PM EDT 1 Drop Given 04/06/2023 2:18 PM EDT 1 Drop Given 04/06/2023 2:13 PM EDT 1 Drop isolyte-S pH 7.4 infusion Intravenous, Plasma-LYTE 148, isolyte-S, and isolyte-S pH 7.4 are considered equivalent - including for MAR barcode scanning., CONTINUOUS, Starting on Wed04/06/23 at 1445, Until Wed04/06/23 at 203, Pre-Op Continue from Pre-Op 04/06/2023 3:39 PM EDT 100 mL/hr New Bag 04/06/2023 2:18 PM EDT 500 mL 100 mL/hr moxifloxacin (Vigamox) 0.5 % ophthalmic solution 1 Drop 1 Drop, Left eye, Q5 MINUTES, First dose on Wed04/06/23 at 1445, Last dose on Wed04/06/23 at 1455, For 3 doses, PRE-OP: One drop to left eye every 5 minutes for 3 doses, Pre-Op Given 04/06/2023 2:23 PM EDT 1 Drop Given 04/06/2023 2:18 PM EDT 1 Drop Given 04/06/2023 2:13 PM EDT 1 Drop proparacaine (Alcaine) 0.5 % ophthalmic solution 1 Drop 1 Drop, Left eye, ONCE, On Wed04/06/23 at 1445, For 1 dose, PRE-OP: 15 minutes prior to scheduled surgery time for 1 dose, Pre-Op Given 04/06/2023 2:13 PM EDT 1 Drop tropicamide 1%-cyclopentolate 1%-phenylephrine 2.5% ophthalmic solution 1 Drop 1 Drop, Left eye, Q5 MINUTES, First dose on Wed04/06/23 at 1445, Last dose on Wed04/06/23 at 1455, For 3 doses, Pre-Op Given 04/06/2023 2:23 PM EDT 1 Drop Given 04/06/2023 2:18 PM EDT 1 Drop Given 04/06/2023 2:13 PM EDT 1 Drop documented in this encounter Active and Recently Administered Medications Times are shown in EDT. Scheduled Medication Order 04/04/2023 04/05/2023 04/06/2023 Diclofenac Sodium (Voltaren) 0.1 % ophthalmic solution 1 Drop (COMPLETED) 1 Drop, Left eye, Q5 MINUTES, First dose on Wed04/06/23 at 1445, Last dose on Wed04/06/23 at 1455, For 3 doses, PRE-OP: One drop to left eye every 5 minutes for 3 doses, Pre-Op 1413 (Given - Provid er: Maria Del Carmen Marcos RN)1418 (Given - Provider: Maria Del Carmen Marcos RN)1423 (Given - Provider: Maria Del Carmen Marcos RN) moxifloxacin (Vigamox) 0.5 % ophthalmic solution 1 Drop (COMPLETED) 1 Drop, Left eye, Q5 MINUTES, First dose on Wed04/06/23 at 1445, Last dose on Wed04/06/23 at 1455, For 3 doses, PRE-OP: One drop to left eye every 5 minutes for 3 doses, Pre-Op 1413 (Given - Provid er: Maria Del Carmen Marcos RN)1418 (Given - Provider: Maria Del Carmen Marcos RN)1423 (Given - Provider: Maria Del Carmen Marcos RN) Povidone-Iodine (Betadine) 5 % 2 mL syringe ophthalmic solution 1 Drop 1 Drop, Left eye, ONCE, On Wed04/06/23 at 1445, For 1 dose, Pre-Op 1445 (Due) proparacaine (Alcaine) 0.5 % ophthalmic solution 1 Drop (COMPLETED) 1 Drop, Left eye, ONCE, On Wed04/06/23 at 1445, For 1 dose, PRE-OP: 15 minutes prior to scheduled surgery time for 1 dose, Pre-Op 1413 (Given - Provid er: Maria Del Carmen Marcos RN) tropicamide 1%-cyclopentolate 1%-phenylephrine 2.5% ophthalmic solution 1 Drop (COMPLETED) 1 Drop, Left eye, Q5 MINUTES, First dose on Wed04/06/23 at 1445, Last dose on Wed04/06/23 at 1455, For 3 doses, Pre-Op 1413 (Given - Provid er: Maria Del Carmen Marcos RN)1418 (Given - Provider: Maria Del Carmen Marcos RN)1423 (Given - Provider: Maria Del Carmen Marcos RN) Continuous Medication Order 04/04/2023 04/05/2023 04/06/2023 isolyte-S pH 7.4 infusion Intravenous, Plasma-LYTE 148, isolyte-S, and isolyte-S pH 7.4 are considered equivalent - including for MAR barcode scanning., CONTINUOUS, Starting on Wed04/06/23 at 1445, Until Wed04/06/23 at 2035, Pre-Op 1418 (New Bag - Prov ider: Maria Del Carmen Marcos RN)1539 (Continue from Pre-Op - Provider: Yessenia Briceño CRNA)1605 (Anes Intra-Op Fluid - Provider: Yessenia Briceño CRNA) PRN Medication Order 04/04/2023 04/05/2023 04/06/2023 balanced salt solution (Bss) ophthalmic solution (CANCELED) ONCE PRN INTRA PROCEDURE, Starting on Wed04/06/23 at 1554, Until Wed04/06/23 at 1557, Intra-Op 1554 (Given - Provid er: Raheem Yañez MD - Comment: qs) DUOVISC inj KIT (CANCELED) ONCE PRN INTRA PROCEDURE, Starting on Wed04/06/23 at 1554, Until Wed04/06/23 at 1557, Intra-Op 1554 (Given - Provid er: Raheem Yañez MD - Comment: qs) hydroxypropyl methylcellulose (Ocucoat) 2 % intraocular inj (CANCELED) ONCE PRN INTRA PROCEDURE, Starting on Wed04/06/23 at 1555, Until Wed04/06/23 at 1557, Intra-Op 1555 (Given - Provid er: Raheem Yañez MD - Comment: qs) Lidocaine 1 % (PF) inj (CANCELED) ONCE PRN INTRA PROCEDURE, Starting on Wed04/06/23 at 1555, Until Wed04/06/23 at 1557, Intra-Op 1555 (Given - Provid er: Raheem Yañez MD - Comment: qs) Moxifloxacin intracameral inj (CANCELED) ONCE PRN INTRA PROCEDURE, Starting on Wed04/06/23 at 1555, Until Wed04/06/23 at 1557, Intra-Op 1555 (Given - Provid er: Raheem Yañez MD) prednisoLONE Acetate (Pred Forte) 1 % ophthalmic suspension (CANCELED) ONCE PRN INTRA PROCEDURE, Starting on Wed04/06/23 at 1555, Until Wed04/06/23 at 1557, Intra-Op 1555 (Given - Provid er: Raheem Yañez MD) Tetracaine (Pontocaine) 0.5 % ophthalmic solution (CANCELED) ONCE PRN INTRA PROCEDURE, Starting on Wed04/06/23 at 1555, Until Wed04/06/23 at 1557, Intra-Op 1555 (Given - Provid er: Raheem Yañez MD - Comment: qs) documented in this encounter Advance Directives Latest Code Status on File Code Status Date Activated Date Inactivated Comments Full Code 04/06/2023 2:03 PM 04/06/2023 8:35 PM Thi s order reflects the patients wishes and were consensually agreed upon. Question Answer Comments Discussion of Advance Directives occurred with: Patient Does the patient have a Living Will? No Does the patient have Health Care Power of Delimer? No Code Status History Code Status Date Activated Date Inactivated Comments Full Code 03/23/2023 1:21 PM 03/23/2023 7:17 PM This order reflects the patients wishes and were consensually agreed upon. Question Answer Comments Discussion of Advance Directives occurred with: Patient Does the patient have a Living Will? No Does the patient have Health Care Power of Delimer? No Care Teams [employer] Relationship Specialty Start Date End Date Elijah Whittaker MD [address] [place] [address] PCP - General Family Medicine 06/29/16 documented as of this encounter
--- OUTSIDE RECORDS SUMMARY | 2023-08-01 12:48 | External Medical Summary | Summary of Care ---
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 [H25.811] Procedures REMOVE CATARACT, INSERT LENS PROSTH RIGHT EXTRACAPSULAR CATARACT REMOVAL WITH INTRAOCULAR LENS Referral ID Status Reason Start Date Expiration Date Visits Re quested Visits Authorized [id number] Encounter Details Date Type Department Care Team Description 03/23/2023 Hospital Encounter OR [facility], Operating Room [facility] [address] [place] [id number] Raheem Yañez MD [facility] [address] [facility] [address] [place] [address] Allergies No known active allergiesdocumented as of this encounter (statuses as of 03/24/2023) Medications Medication Sig Dispensed Refills Start Date [...] as of this encounter (statuses as of 03/24/2023) Active Problems Problem Noted Date Diverticulitis of colon 03/09/2023 History of 2018 novel coronavirus diseas e (COVID-19) 07/10/2021 Overview: 07/12 vaccinated. 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 Referred for surgery [facility] [place] 2nd opinion Well adult exam 11/15/2018 Overview: Her insurance requires "Dx" code for labs, not screening. 01/08 colon 10mm polyp PATH PEND gavino 3y? History of colon polyps 09/28/2018 Dyslipidemia, goal LDL below 100 011 documented as of this encounter (statuses as of 03/24/2023) Resolved Problems Problem Noted Date Resolved Date [...] as of this encounter (statuses as of 03/24/2023) Immunizations Name Administration Dates Next Due COVID-19 mRNA, LNP-s, No Pre serve, 2-Dose Series (Z[employer]ask) 03/19/2021,09/14/2020,08/19/2020 COVID-19, LNP-s, No Preserve , Cliff-sucrose, [...] Sign Reading Time Taken Comments Blood Pressure 135/66 03/23/2023 3:02 PM EDT Pulse 64 03/23/2023 3:02 PM EDT Temperature 37 C (98.6 F) 03/23/2023 3:02 PM EDT Respiratory Rate 18 03/23/2023 3:02 PM EDT Oxygen Saturation 98% 03/23/2023 3:02 PM EDT Inhaled Oxygen Concentration - - Weight 62.1 kg (137 lb) 03/23/2023 1:29 PM EDT Height 160 cm (5' 3") 03/23/2023 1:29 PM EDT Body Mass Index 24.27 03/23/2023 1:29 PM EDT documented in this encounter Discharge Instructions * Discharge Instr - AVS* Raheem Yañez MD - 03/02/2023 8:24 AM EDT Discharge Date: 03/23/23 You may call Doctor Yañez at during business hours and for after-hours [...] or school: N/A Follow Up - Return appointment(s):03/24/23 @10:[address] Kumari See your medical record assistant in 1day(s). SPECIAL INSTRUCTIONS EYEDROPS for [...] DO NOT HESITATE TO CALL US AT [phone] AT ANY TIME I, Raheem Yañez MD personally performed the services described in this documentation. All medical record entries made by the scribe were at my direction and in my presence. I have reviewed the chart and agree that the record reflects my personal performance and is accurate and complete. Raheem gardner MD. 03/23/2023. 2:45 PM. documented in this encounter H&P Notes * Raheem Yañez MD - 03/23/2023 8:26 AM EDT HISTORY & PHYSICAL INTERVAL NOTE [facility] [address] [facility] [place] [address] History and Physical Update: Name: Emma Lopez Location: Room/bed info not found Date: 03/23/2023 Time: 8:26 AM DATE OF HISTORY AND PHYSICAL: 03/10/23 BP: 182 mmHg/76 mmHg (03/23/231328) Pulse: 74 (03/23/231328) Temp: 36.67 C (03/23/231328) Resp: 18 (03/23/231328) SpO2: 99 % (03/23/231328) Does patient take a beta mahad? No Did patient stop anticoagulants? No Heart Exam: regular rate and rhythm Lung Exam: clear to auscultation bilaterally Other Pertinent Physical Exam: none I have reviewed the H&P previously performed and examined the patient today. There are no new findings noted. documented in this encounter Nursing Notes * Desiree Johnson RN - 03/23/2023 3:17 PM EDT Patient awake and oriented x3. Denies pain. No drainage from eye noted. Tolerating PO fluids. Discharge instructions given and patient verbalizes understanding. Patient ambulated to private vehicle and discharged to home. * Desiree Johnson RN - 03/23/2023 2:47 PM EDT Patient transferred to pacu 2 status post right cataract removal and lens placement. No drainage noted. Patient awake. Denies pain and nausea. Respirations are even and unlabored on room air. Abdomensoft and non distended. Vital signs stable. documented in this encounter OR Notes * OR Surgeon - Raheem Yañez MD - 03/23/2023 3:02 PM EDT [facility] [address] [place] [address] OPERATIVE REPORT Name: Emma Lopez Date: 03/23/2023 Time: 3:03 PM Location: [facility] Service: Ophthalmology Date of Operation: 03/23/2023 Pre-op Diagnosis: Visually significant combined cataract, right eye Post-op Diagnosis: Same Operative Procedure: Phacoemulsification with posterior chamber intraocular lens implantation righteye (69722 Standard Cataract) + REFRACTIVE COMPONENT: Low Astigmatism Refractive Package for Distance vision Surgeon: Raheem Yañez MD Assistants: None Anesthesia: topical Implant/Graft: B&L: 21.5 [id number] SN: [id number] Complications: none Drains: none Urine Output: minimal [...] incisions, both in terms of size and placement in order to relax the cornea and treat the refractive astigmatism. A continuous curvilinear capsulorrhexis was created using a cystitome and Utrata forcep. Hydrodissection was then performed using balanced salt solution. The nucleus was emulsified using the phacoemulsification handpiece. The cortex was removed using the automated irrigation aspiration unit. Viscoelastic was then used to deepen the capsular bag. A posterior chamber lens was then inserted into thecapsular bag. The capsular bag was polished and then excess viscoelastic was then aspirated using the irrigation aspiration unit. The wound was hydrated, tested and found to be water tight. Intracameral Moxifloxacin was given. After the post-operative drops were given, including topical antibiotic and steroid, a shield was placed. The patient tolerated the procedure well. Condition: The patient left the operating room in good condition. Disposition: In and Out Recovery Unit Attestation: I performed the procedure Note has been documented by Yamile Boyer on 03/23/2023 documented in this encounter Plan of Treatment Upcoming Encounters Date Type Specialty Care Team Description 04/06/2023 Hospital Encounter Surgery Raheem Yañez MD [address] [address] 04/06/2023 Surgery Surgery Raheem Yañez MD [facility] [address] [address] LEFT EXTRACAPSULAR CATARACT REMOVAL WITH INTRAOCULAR LENS [...] Depression Screening 08/14/2021 08/14/2020 COVID-19 Vaccine ( season) 2023 06/10/2022, 09/30/2021, 03/19/2021, Additional history [...] this encounter Medical Devices Implanted Type Area Hydraulic Dredge Operator Device Identifier Shelf Expiration Date Model / Serial / Lot Clip Quick 2.8mm 230cm - [id number] Implanted:Qty: 1 on 01/07/2021 by Nico Crisostomo MD at ENDOSCOPY [facility] Colon [employer] 08/19/2023 [id number]-202UR.A / / [id number] Lens [id number] 12.5mm+21.50 - [id number] - [id number] Implanted:Qty: 1 on 03/23/2023 by Raheem Yañez MD at OR [facility] Right: Eye [employer] 11/18/2025 [id number] / [id number] / [id number] documented as of this encounter Administered Medications Inactive Administered Medications - up to 3 most recent administrations Medication Order MAR Action Action Date Dose Rate Site Acetaminophen (Tylenol) tab 650 mg 650 mg, Oral, PRN Pain, Mild, Starting on Wed03/23/23 at 1452, Until Wed03/23/23 at 1917, For 1 dose, Maximum of 4 grams (4000 mg) per day., Post-op Diclofenac Sodium (Voltaren) 0.1 % ophthalmic solution 1 Drop 1 Drop, Right eye, Q5 MINUTES, First dose on Wed03/23/23 at 1400, Last dose on Wed03/23/23 at 1410, For 3 doses Given 03/23/2023 1:43 PM EDT 1 Drop Given 03/23/2023 1:36 PM EDT 1 Drop Given 03/23/2023 1:31 PM EDT 1 Drop isolyte-S pH 7.4 infusion Intravenous, Plasma-LYTE 148, isolyte-S, and isolyte-S pH 7.4 are considered equivalent - including for MAR barcode scanning., CONTINUOUS, Starting on Wed03/23/23 at 1400, Until Wed03/23/23 at 1917, Pre-Op Rate Change 03/23/2023 2:23 PM EDT 100 mL/hr New Bag 03/23/2023 1:37 PM EDT 500 mL 100 mL/hr moxifloxacin (Vigamox) 0.5 % ophthalmic solution 1 Drop 1 Drop, Right eye, Q5 MINUTES, First dose on Wed03/23/23 at 1400, Last dose on Wed03/23/23 at 1410, For 3 doses, PRE-OP: One drop to right eye every 5 minutes for 3 doses, Pre-Op Given 03/23/2023 1:4 3 PM EDT 1 Drop Given 03/23/2023 1:36 PM EDT 1 Drop Given 03/23/2023 1:31 PM EDT 1 Drop proparacaine (Alcaine) 0.5 % ophthalmic solution 1 Drop 1 Drop, Right eye, ONCE, On Wed03/23/23 at 1400, For 1 dose, PRE-OP: 15 minutes prior to scheduled surgery time for 1 dose, Pre-Op Given 03/23/2023 1:31 PM EDT 1 Drop tropicamide 1%-cyclopentolate 1%-phenylephrine 2.5% ophthalmic solution 1 Drop 1 Drop, Right eye, Q5 MINUTES, First dose on Wed03/23/23 at 1400, Last dose on Wed03/23/23 at 1410, For 3 doses, Pre-Op Given 03/23/2023 1:43 PM EDT 1 Drop Given 03/23/2023 1:36 PM EDT 1 Drop Given 03/23/2023 1:31 PM EDT 1 Drop documented in this encounter Active and Recently Administered Medications Times are shown in EDT. Scheduled Medication Order 03/21/2023 03/22/2023 03/23/2023 Diclofenac Sodium (Voltaren) 0.1 % ophthalmic solution 1 Drop (COMPLETED) 1 Drop, Right eye, Q5 MINUTES, First dose on Wed03/23/23 at 1400, Last dose on Wed03/23/23 at 1410, For 3 doses 1331 (Given - Provid er: Maria Del Carmen Marcos RN)1336 (Given - Provider: Maria Del Carmen Marcos RN)1343 (Given - Provider: Maria Del Carmen Marcos RN) moxifloxacin (Vigamox) 0.5 % ophthalmic solution 1 Drop (COMPLETED) 1 Drop, Right eye, Q5 MINUTES, First dose on Wed03/23/23 at 1400, Last dose on Wed03/23/23 at 1410, For 3 doses, PRE-OP: One drop to right eye every 5 minutes for 3 doses, Pre-Op 1331 (Given - Provid er: Maria Del Carmen Marcos RN)1336 (Given - Provider: Maria Del Carmen Marcos RN)1343 (Given - Provider: Maria Del Carmen Marcos RN) Povidone-Iodine (Betadine) 5 % 2 mL syringe ophthalmic solution 1 Drop 1 Drop, Right eye, ONCE, On Wed03/23/23 at 1400, For 1 dose, Pre-Op 1400 (Due) proparacaine (Alcaine) 0.5 % ophthalmic solution 1 Drop (COMPLETED) 1 Drop, Right eye, ONCE, On Wed03/23/23 at 1400, For 1 dose, PRE-OP: 15 minutes prior to scheduled surgery time for 1 dose, Pre-Op 1331 (Given - Provid er: Maria Del Carmen Marcos RN) tropicamide 1%-cyclopentolate 1%-phenylephrine 2.5% ophthalmic solution 1 Drop (COMPLETED) 1 Drop, Right eye, Q5 MINUTES, First dose on Wed03/23/23 at 1400, Last dose on Wed03/23/23 at 1410, For 3 doses, Pre-Op 1331 (Given - Provid er: Maria Del Carmen Marcos RN)1336 (Given - Provider: Maria Del Carmen Marcos RN)1343 (Given - Provider: Maria Del Carmen Marcos RN) Continuous Medication Order 03/21/2023 03/22/2023 03/23/2023 isolyte-S pH 7.4 infusion Intravenous, Plasma-LYTE 148, isolyte-S, and isolyte-S pH 7.4 are considered equivalent - including for MAR barcode scanning., CONTINUOUS, Starting on Wed03/23/23 at 1400, Until Wed03/23/23 at 1917, Pre-Op 1337 (New Bag - Prov ider: Maria Del Carmen Marcos RN)1423 (Rate Change - Provider: Mathew Armando CRNA)1443 (Stopped - Provider: Mathew Armando CRNA) PRN Medication Order 03/21/2023 03/22/2023 03/23/2023 Acetaminophen (Tylenol) tab 650 mg 650 mg, Oral, PRN Pain, Mild, Starting on Wed03/23/23 at 1452, Until Wed03/23/23 at 1917, For 1 dose, Maximum of 4 grams (4000 mg) per day., Post-op balanced salt solution (Bss) ophthalmic solution (CANCELED) ONCE PRN INTRA PROCEDURE, Starting on Wed03/23/23 at 1437, Until Wed03/23/23 at 1442, Intra-Op 1437 (Given - Provid er: Raheem Yañez MD - Comment: qs) DUOVISC inj KIT (CANCELED) ONCE PRN INTRA PROCEDURE, Starting on Wed03/23/23 at 1438, Until Wed03/23/23 at 1442, Intra-Op 1438 (Given - Provid er: Raheem Yañez MD - Comment: qs) hydroxypropyl methylcellulose (Ocucoat) 2 % intraocular inj (CANCELED) ONCE PRN INTRA PROCEDURE, Starting on Wed03/23/23 at 1434, Until Wed03/23/23 at 1442, Intra-Op 1434 (Given - Provid er: Raheem Yañez MD - Comment: qs) Lidocaine 1 % (PF) inj (CANCELED) ONCE PRN INTRA PROCEDURE, Starting on Wed03/23/23 at 1435, Until Wed03/23/23 at 1442, Intra-Op 1435 (Given - Provid er: Raheem Yañez MD - Comment: qs) Moxifloxacin intracameral inj (CANCELED) ONCE PRN INTRA PROCEDURE, Starting on 10/3/23 at 1441, Until 03/23/23 at 1442, Intra-Op 1441 (Given - Provid er: Rhaeem Yañez MD - Comment: qs) prednisoLONE Acetate (Pred Forte) 1 % ophthalmic suspension (CANCELED) ONCE PRN INTRA PROCEDURE, Starting on Tu03/23/23 at 1442, Until 03/23/23 at 1442, Intra-Op 1442 (Given - Provid er: Raheem Yañez MD - Comment: qs) Tetracaine (Pontocaine) 0.5 % ophthalmic solution (CANCELED) ONCE PRN INTRA PROCEDURE, Starting on Wed03/23/23 at 1432, Until Tu03/23/23 at 1442, Intra-Op 1432 (Given - Provid er: Raheem Yañez MD [...] the patient have Health Care Power of Scallop Cutter? No Care Teams Artificial Log Machine Operator Relationship Specialty Start Date End Date Elijah Whittaker MD [address] [place] [address] PCP - General Family Medicine 06/29/16 documented as of this encounter
--- OUTSIDE RECORDS SUMMARY | 2023-08-01 12:48 | External Medical Summary | Summary of Care ---
Author Name Unknown Organization [facility] Address [address] [facility] [place] [address] Phone [phone] Care Team Providers Care Power Wheelchair Mechanic Name Role Phone Elijah Whittaker MD Primary Care Provider + Reason for Visit * Reason Comments pre-op exam Cataract surgery-- 1 & 04/06 Encounter Details Date Type Department Care Team Description 03/09/2023 Office Visit Family Practice [facility] [address] [place] [address] [facility] [address] Pre-op evaluation*; Diverticulitis of colon; Anxiety state; Dyslipidemia, goal LDL below 100 Allergies No known active allergiesdocumented as of this encounter (statuses as of 03/09/2023) Medications Medication Sig Dispensed Refills Start Date [...] as of this encounter (statuses as of 03/09/2023) Active Problems Problem Noted Date Diverticulitis of colon 03/09/2023 History of 2019 novel coronavirus diseas e (COVID-19) 07/10/2021 Overview: 07/12 vaccinated. 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 Referred for [place] [facility] [place] [place] 2nd opinion Well adult exam 11/15/2018 Overview: Her insurance requires "Dx" code for labs, not screening. 01/08 colon 10mm polyp PATH PEND gavino 3y? History of colon polyps 09/28/2018 Dyslipidemia, goal LDL below 100 011 documented as of this encounter (statuses as of 03/09/2023) Resolved Problems Problem Noted Date Resolved Date [...] as of this encounter (statuses as of 03/09/2023) Immunizations Name Administration Dates Next Due COVID-19 mRNA, LNP-s, No Pre serve, 2-Dose Series ([employer] Watchdog) 03/19/2021,09/14/2020,08/19/2020 COVID-19, LNP-s, No Preserve , Cliff-sucrose, Ages 12+ (ID Watchdog) 09/30/2021 Covid-19, Mrna, Lnp-s, Pf, B ivalent, [...] Sign Reading Time Taken Comments Blood Pressure 116/68 03/09/2023 11:27 AM EDT Pulse 74 03/09/2023 11:27 AM EDT Temperature 36.5 C (97.7 F) 03/09/2023 1 1:27 AM EDT Respiratory Rate - - Oxygen Saturation 97% 03/09/2023 11: 27 AM EDT Inhaled Oxygen Concentration - - Weight 62.6 kg (137 lb 14.4 oz) 023 11:27 AM EDT Height 160 cm (5' 3") 03/09/2023 11:27 AM EDT Body Mass Index 24.43 03/09/2023 11:27 AM EDT documented in this encounter Nursing Notes * Koki Amin LPN - 03/09/2023 11:24 AM EDT The patient has been properly identified by confirmation of name and date of . Chief Complaint Patient presents with pre-op exam Cataract surgery-- 03/23 & 04/06 Has form for us to fill out. Dr. Yañez is preforming the surgery. Pt states no EKG needed. documented in this encounter Plan of Treatment Upcoming Encounters Date Type Specialty Care Team Description 03/23/2023 Hospital Encounter Surgery Raheem Yañez MD [address] [address] 03/23/2023 Surgery Surgery Raheem Yañez MD [address] [address] RIGHT EXTRACAPSULAR CATARACT REMOVAL WITH INTRAOCULAR LENS 04/06/2023 Hospital Encounter Surgery Raheem Yañez MD [address] [address] 04/06/2023 Surgery Surgery Raheem Yañez MD [address] [address] LEFT EXTRACAPSULAR CATARACT REMOVAL WITH INTRAOCULAR LENS [...] this encounter Medical Devices Implanted Type Area Visitor Information Assistant Device Identifier Shelf Expiration Date Model / Serial / Lot Clip Quick 2.8mm 230cm - [id number] Implanted:Qty: 1 on 01/07/2021 by Nico Crisostomo MD at ENDOSCOPY [facility] Colon [employer] 08/19/2023 HX-202UR.A / / [id number] documented as of this encounter Visit Diagnoses Diagnosis Pre-op evaluation- Primary Preoperative examination, unspecified Diverticulitis of colon Diverticulitis of colon (without mention of hemorrhage) Anxiety state Anxiety state, unspecified Dyslipidemia, goal LDL below 100 Other and unspecified hyperlipidemia Combined forms of age-related cataract of right eye Other and combined forms of senile cataract Combined forms of age-related cataract of left eye Other and combined forms of senile cataract documented in this encounter Care Teams Power Wheelchair Mechanic Relationship Specialty Start Date End Date Elijah Whittaker MD [address] [place] [address] PCP - General Family Medicine 06/29/16 documented as of this encounter
--- OUTSIDE RECORDS SUMMARY | 2023-08-01 12:48 | External Medical Summary | Summary of Care ---
Author Name Unknown Organization [facility] Address [address] [facility] [place] [address] Phone [phone] Care Team Providers Care Legal Stenographer Name Role Phone Elijah Whittaker MD Primary Care Provider + Reason for Visit * Reason Comments pre-op exam Cataract surgery-- 1 & 04/06 Encounter Details Date Type Department Care Team Description 03/09/2023 Office Visit Family Practice [facility] [address] [place] [address] [facility] Gonzales [facility] [address] Pre-op evaluation*; Diverticulitis of colon; Anxiety state; [...] 09/07/2019 Overview: 09/07 FNA. Referred for surgery [facility] [place] [place] [facility] [place] 2nd opinion Well [...] mRNA, LNP-s, No Pre serve, 2-Dose Series ([employer]) 03/19/2021,09/14/2020,08/19/2020 COVID-19, LNP-s, No Preserve , Cliff-sucrose, Ages 12+ ([employer]) 09/30/2021 Covid-19, Mrna, Lnp-s, Pf, B ivalent, [...] Surgery Raheem Yañez MD [address] [address] 03/23/2023 Surgery Surgery Raheem Yañez MD [address] [address] RIGHT EXTRACAPSULAR CATARACT REMOVAL WITH INTRAOCULAR LENS 04/06/2023 Hospital Encounter Surgery Raheem Yañez MD [address] [address] 04/06/2023 Surgery Surgery Raheem Yañez MD [address] [address] LEFT EXTRACAPSULAR CATARACT REMOVAL WITH INTRAOCULAR LENS [...] this encounter Medical Devices Implanted Type Area Adobe Developer Device Identifier Shelf Expiration Date Model / Serial / Lot Clip Quick 2.8mm 230cm - [id number] Implanted:Qty: 1 on 01/07/2021 by Nico Crisostomo MD at [facility]OSCOPY [facility] Colon [id number] 08/19/2023 HX-202UR.A / / [id number] documented [...] cataract documented in this encounter Care Teams Legal Stenographer Relationship Specialty Start Date End Date Elijah Whittaker MD [address] [place] [address] PCP - General Family Medicine 06/29/16 documented as of this encounter
--- OUTSIDE RECORDS SUMMARY | 2023-08-01 12:48 | External Medical Summary | Summary of Care ---
Author Name Unknown Organization [facility] Address [address] [place] [address] Phone [phone] Care Team Providers Care Produce Wrapper Name Role Phone Elijah Oneil MD Primary Care Provider + Reason for Visit * Reason Comments eRx-Medication Refill Encounter Details Date Type Department Care Team (Late st Contact Info) Description 04/20/2023 Refill Family Practice [facility] [address] [place] [address] Elijah Oneil MD [address] [place] [address] Dyslipidemia, goal LDL below 100 Allergies No known active allergiesdocumented as of this encounter (statuses as of 04/21/2023) Medications Medication Sig Dispensed Refills Start Date End Date Status Diclofenac Sodium 1 % External Gel (Voltaren) APPLY 4 TIMES A DAY NEEDED FOR PAIN NOT TO EXCEED 16 GRAMS TO SINGLE JOINT A DAY 100 g 2 10/15/2021 Active Simvastatin 20 MG Oral Tablet (Zocor)Indication s:Dyslipidemia, goal LDL below 100 TAKE 1 TABLET BY MOUTH IN THE EVENING 90 Tablet 1 04/21/2023 Active Simvastatin 20 MG Oral Tablet (Zocor)Indication s:Dyslipidemia, goal LDL below 100 TAKE 1 TABLET BY MOUTH IN THE EVENING 90 Tablet 0 01/18/2023 04/21/2023 Discontinued documented as of this encounter (statuses as of 04/21/2023) Active Problems Problem Noted Date Diagnosed Date Diverticulitis of colon 03/09/2023 History of 2019 novel coronavirus disease (COVID -19) 07/10/2021 Overview: 07/12 vaccinated. 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 Referred for surgery [facility] 2nd opinion Well adult exam 11/15/2018 Overview: Her insurance requires "Dx" code for labs, not screening. 01/08 colon 10mm polyp PATH PEND gavino 3y? History of colon polyps 09/28/2018 Dyslipidemia, goal LDL below 100 06/12/2011 documented as of this encounter (statuses as of 04/21/2023) Resolved Problems Problem Noted Date Diagnosed Date [...] as of this encounter (statuses as of 04/21/2023) Immunizations Name Administration Dates Next Due COVID-19 mRNA, LNP-s, No Pre serve, 2-Dose Series (Masterseek) 03/19/2021,09/14/2020,08/19/2020 COVID-19, LNP-s, No Preserve , Cliff-sucrose, [...] on file documented as of this encounter Miscellaneous Notes * Telephone Encounter - Meir Baer [facility] - 04/21/2023 8:01 AM EDTSigned Prescriptions: Disp Refills Simvastatin 20 MG Oral Tablet (Zocor) 90 Tab*1 Sig: TAKE 1 TABLET BY MOUTH IN THE EVENINGAuthorizing Provider: ELIJAH ONEIL User: MEIR BAER--- documented in this encounter Plan of Treatment Scheduled Procedures [...] this encounter Medical Devices Implanted Type Area Mobile Battery Technician Device Identifier Shelf Expiration Date Model / Serial / Lot Clip Quick 2.8mm 230cm - [id number] Implanted:Qty: 1 on 01/07/2021 by Nico Crisostomo MD at [facility] Colon [employer] 08/19/2023 [id number] / / [id number] Lens [id number] 12.5mm+21.50 - [id number] - [id number] Implanted:Qty: 1 on 03/23/2023 by Raheem Yañez MD at OR [facility] Right: Eye [employer] 11/18/2025 [id number] / [id number] / [id number] [employer] Implanted:Qty: 1 on 04/06/2023 by Raheem Yañez MD at OR [facility] Left: Eye [employer] 03/20/2025 [id number] / [id number] / [id number] documented as of this encounter Visit Diagnoses Diagnosis Dyslipidemia, goal LDL below 100 Other and unspecified hyperlipidemia documented in this encounter Advance Directives Latest [...] the patient have Health Care Power of Band Splicer? No Code Status History Code Status Date Activated Date Inactivated Comments Full Code 03/23/2023 1:21 PM 03/23/2023 7:17 PM This order reflects the patients wishes and were consensually agreed upon. Question Answer Comments Discussion of Advance Directives occurred with: Patient Does the patient have a Living Will? No Does the patient have Health Care Power of Band Splicer? No Care Teams Produce Wrapper Relationship Specialty Start Date End Date Elijah Oneil MD [address] [place] [address] PCP - General Family Medicine 06/29/16 documented as of this encounter
[2023-08-01] MEDS: KETOROLAC TROMETHAMINE 15 MG/ML VIAL IV ONE (13:08)
[2023-08-01] MEDS: MoRPHine SULFATE 4 MG/ML 1 ML CARP\\VIAL IV STA (13:08)
[2023-08-01] MEDS: ONDANSETRON INJ 2 MG/ML 2 ML VIAL IV STA (13:08)
--- NOTE | 2023-08-01 13:33 | Emergency Department Note ---
Impression & Plan Lower back pain, Ambulatory dysfunction, Sciatica ED Provider Note NAME: CHRISTINA PETTY AGE: 73 SEX: F : 1950 ARRIVES VIA: Ambulance INFORMANT: Patient ED PROVIDER(S): Levy Schaefer DO CHIEF COMPLAINT: back pain HPI: Patient is a 73-year-old female who presents to the ER for back pain. She notes this started about 2 weeks ago when she fell and she started having lower back pain. Symptoms have been waxing and waning intermittently. She was doing better for a while and cyclobenzaprine per the who provides additional history at bedside. Patient notes that over the past 24 hours she has had a significant worsening of the pain in the left lower back radiating into the left leg. She denies any weakness but does have some tingling. It is worse with twisting, turning, and bending. No fevers. No recent trauma other than 2 weeks ago. Urinates without difficulty. Again no weakness in the legs. ADDITIONAL HISTORY OBTAINED: Per HPI Chronic Medical/Social Conditions Affecting Care: Per HPI PAST MEDICAL HISTORY:See Below PAST SURGICAL HISTORY:See Below FAMILY HISTORY:See Below SOCIAL HISTORY:See Below HOME MEDICATIONS:See Below ALLERGIES:See Below VITALS:See Below PHYSICAL EXAMINATION: GENERAL: Sitting up in bed, alert, well appearing, well nourished, no distress, non-toxic EYE EXAM: normal conjunctiva. OROPHARYNX: no exudate, no erythema, lips, buccal mucosa, and tongue normal and mucous membranes are moist NECK: supple, no nuchal rigidity, no adenopathy, non-tender LUNGS: Clear to auscultation. Normal chest wall mechanics HEART: no murmurs, S1 normal and S2 normal ABDOMEN: abdomen soft, non-tender, normo-active bowel sounds, no masses, no rebound or guarding. BACK: Back is symmetrical on inspection and there is no deformity, midline tenderness in the lower lumbar tracking down to the left SI joint and through the left gluteus UPPER EXTREMITIES: upper extremities are grossly normal. LOWER EXTREMITIES: Flexion and extension of the hips, knees, ankles, and EHL 5/5 bilaterally. Gross sensation is intact. DPs are 2/4 bilateral. NEURO EXAM: Normal sensorium, cranial nerves II-XII grossly intact, normal speech, no gross weakness of arms, no gross weakness of legs. MEDICAL DECISION MAKING: Patient is a 73-year-old female who presents ER for back pain. Pain radiates to the left lower back and into the left leg. IV was established with blood was obtained. Clinically does appear to be consistent with sciatica. Labs show no significant leukocytosis or anemia. BMP was unremarkable. CT lumbar spine was unremarkable. She was given steroids Toradol and morphine. She was still unable to move and consequently was given another dose of morphine. She was reassessed and unable to ambulate. She was discussed with the hospitalist for further observation. Consults/Care Managements Discussions: Per [facility] Triage Nursing notes reviewed. Limited review of prior medical records performed Vital Signs: reviewed and remarkable for HTN Differential diagnosis: Musculoskeletal, disc herniation, fracture, metastatic disease, cord compression, discitis, sciatica, cauda equina, infection, aortic disease, renal colic, gastrointestinal, as well as other pathologies. ER treatment provided: See below Diagnostics interpreted by me include EKG and cardiac monitoring as listed below: -Cardiac Monitoring: An order was placed for continuous cardiac monitoring. The monitor shows a rate of 60 with sinus rhythm. -ECG: none -Laboratory studies:Interpreted by me as stated above in MDM and shown below. Imaging studies: Xrays: As interpreted by me:none CTs show: CT of the lumbar spine per my preliminary read showed no obvious large fracture CT abdomen pelvis per radiology as described above Procedures:none Critical Care: None Past Med/Surg History Medical History Arthritis Diverticulitis Surgical History H/O: hysterectomy 2000 History of parotidectomy Partial Family History Mother Ovarian cancer Father Stroke Hypertension Grandmother (Paternal) Cancer Sister Multiple sclerosis Leukemia Aunt Multiple sclerosis Social History Smoking Status: Former smoker Hx Alcohol Use: Yes (daily ) Alcohol Intake Frequency: 4 or More x per/Week Hx Substance Use: No Preferred Language: Faroese Feels Safe at Home: Yes Sunscreen Use: Yes Allergies Allergies Allergy/AdvReac Type Severity Reaction Status Date / Time No Known Allergies Allergy Verified 08/01/23 14:57 Home Meds Home Medications Medication Instructions Recorded Confirmed diclofenac sodium 1 % topical gel 1 ea topical QID PRN Pain 10/03/21 08/01/23 simvastatin 20 mg tablet 20 mg PO QPM 10/03/21 08/01/23 ibuprofen 200 mg tablet (Advil) 200 mg PO UD PRN discomfort 02/01/23 08/01/23 cyclobenzaprine 10 mg tablet 10 mg PO UD 08/01/23 08/01/23 Results & Data (ED) Vital Signs Vital Signs - 24 hr 08/01/23 12:52 08/01/23 13:15 08/01/23 13:15 Temperature 37.0 C Temperature Source Oral Pulse Rate 77 Pulse Rate [Finger] 66 Respiratory Rate 22 21 Respiratory Effort / Characteristics Non-Labored Spontaneous Respiratory Depth Normal Blood Pressure 174/102 H Blood Pressure [Right Arm] 174/102 H Blood Pressure Mean 126 Blood Pressure Mean [Right Arm] 126 Pulse Oximetry 99 97 97 Oxygen Delivery Method Room Air Room Air Sepsis Recent Fever Within 48 Hours No Sepsis New/Unexplained Change in Mental Status No Sepsis Action Taken by Nursing No Action Required 08/01/23 13:48 Temperature Temperature Source Pulse Rate 63 Pulse Rate [Finger] Respiratory Rate Respiratory Effort / Characteristics Respiratory Depth Blood Pressure Blood Pressure [Right Arm] Blood Pressure Mean Blood Pressure Mean [Right Arm] Pulse Oximetry Oxygen Delivery Method Sepsis Recent Fever Within 48 Hours Sepsis New/Unexplained Change in Mental Status Sepsis Action Taken by Nursing Laboratory Data 08/01/23 13:10 08/01/23 13:10 Lab Results 08/01/23 Range/Units 13:10 WBC 7.14 (4.8-10.8) K/ul RBC 4.23 (4.20-5.40) M/uL Hgb 13.6 (12.0-16.0) g/dl Hct 37.8 (37.0-47.0) % MCV 89.4 (80.0-100.0) fL MCH 32.2 (25.0-34.0) pg MCHC 36.0 (32.0-36.0) g/dL RDW Std Deviation 38.0 (36.4-46.3) fL RDW Coeff of Mery 11.7 (11.5-14.5) % Plt Count 253 (130-400) K/uL MPV 10.6 (9.4-12.4) fL Immature Gran % (Auto) 0.3 % Neut % (Auto) 67.6 % Lymph % (Auto) 20.4 % Sauk % (Auto) 9.4 % Eos % (Auto) 1.5 % Baso % (Auto) 0.8 % Neut # (Auto) 4.82 (1.40-6.50) K/uL Lymph # (Auto) 1.46 (1.20-3.40) K/uL Sauk # (Auto) 0.67 H (0.11-0.59) K/uL Eos # (Auto) 0.11 (0.00-0.50) K/uL Baso # (Auto) 0.06 (0.00-0.20) K/uL Immature Gran # (Auto) 0.02 (0.01-0.20) K/uL Sodium 138 (136-145) mmol/L Potassium 4.1 (3.5-5.1) mmol/L Chloride 105 (98-107) mmol/L Carbon Dioxide 26 (21-32) mmol/L Anion Gap 7 (3-11) BUN 13 (6-23) mg/dl Creatinine 0.68 (0.6-1.2) mg/dl Est Cr Clr Drug Dosing 61.7 ml/min Est GFR ( Amer) 99.2 ml/min Est GFR (Non-Af Amer) 85.6 ml/min BUN/Creatinine Ratio 19.1 (10-20) Glucose 97 (70-99(Fasting)) mg/dl Calcium 9.9 (8.6-10.3) mg/dl Administered Medications Discontinued Medications Ketorolac Tromethamine (Ketorolac Tromethamine 15 Mg/Ml Vial) 10 mg IV NOW ONE Stop: 08/01/23 13:02 Last Admin: 08/01/23 13:08 Dose: 10 mg Documented By: MES Methylprednisolone (Methylprednisolone 40 Mg/Ml Vial) 40 mg IV NOW STA Stop: 08/01/23 13:02 Last Admin: 08/01/23 13:08 Dose: 40 mg Documented By: MES Morphine Sulfate (Morphine Sulfate 4 Mg/Ml 1 Ml Carp\Vial) 4 mg IV NOW STA Stop: 08/01/23 13:02 Last Admin: 08/01/23 13:08 Dose: 4 mg Documented By: MES Morphine Sulfate (Morphine Sulfate 10 Mg/Ml Carp/Vial) 6 mg IV NOW STA Stop: 08/01/23 14:18 Last Admin: 08/01/23 14:50 Dose: 6 mg Documented By: RORY Ondansetron HCl (Ondansetron Inj 2 Mg/Ml 2 Ml Vial) 4 mg IV NOW STA Stop: 08/01/23 13:02 Last Admin: 08/01/23 13:08 Dose: 4 mg Documented By: [facility] Imaging Data Radiologist's Impression: Lumbar Spine CT 08/01/23 13:01 CT OF THE LUMBAR SPINE CLINICAL HISTORY: lower back pain radiating to the left side s/p fall COMPARISON STUDY: CT of the abdomen and pelvis February 01, 2023. TECHNIQUE: Helical axial images of the lumbar spine were obtained. Sagittal and coronal reconstructions were viewed. Automated exposure control was utilized for the study. A dose lowering technique was utilized adhering to the principles of ALARA. FINDINGS: There is mild to moderate lumbar spine levoscoliosis. Vertebral body heights are maintained. There is no fracture. No osseous lesions are present. There is moderate multilevel disc space narrowing, osteophytosis and facet arthrosis within the lumbar spine. The central canal and neural foramen are suboptimally assessed given CT technique. Paravertebral soft tissues are unremarkable. Visualized portions of the sacroiliac joints are intact. IMPRESSION: 1. No acute lumbar spine fracture or subluxation. 2. Moderate multilevel degenerative changes within the lumbar spine. 3. Mild to moderate lumbar spine levoscoliosis. ACT 112: Negative or not required by law. Electronically signed by: José Miguel Latham M.D. 08/01/2023 1:49 PM Discharge Plan Visit Data Chief Complaint: Fall ED Provider: Levy Schaefer Discharge Problem: Lower back pain, Ambulatory dysfunction, Sciatica Forms Stand Alone Forms: [facility] Socrative Prescriptions Prescriptions: No Action diclofenac sodium 1 % gel 1 ea topical QID PRN (Reason: Pain) Rx Instructions: apply 4 times a day as needed for pain not to exceed 16 grams to a single joint a day simvastatin 20 mg tablet 20 mg PO QPM ibuprofen [Advil] 200 mg Tablet 200 mg PO UD PRN (Reason: discomfort) cyclobenzaprine 10 mg tablet 10 mg PO UD Referrals Referrals: Elijah Whittaker MD [Primary Care Provider] - Discharge Problem: Lower back pain Qualifiers: Chronicity: acute Back pain laterality: unspecified Sciatica presence: with sciatica Sciatica laterality: sciatica laterality unspecified Qualified Code(s): M54.40 - Lumbago with sciatica, unspecified side Sciatica Qualifiers: Laterality: left Qualified Code(s): M54.32 - Sciatica, left side
[2023-08-01 13:38] LABS: Basophils # (auto) 0.06 K/uL (0.00-0.20); Basophils % (auto) 0.8 %; Eosinophils # (auto) 0.11 K/uL (0.00-0.50); Eosinophils % (auto) 1.5 %; Hematocrit (blood only) 37.8 % (37.0-47.0); Hemoglobin 13.6 g/dl (12.0-16.0); Immature Granulocytes # (auto) 0.02 K/uL (0.01-0.20); Immature Granulocytes % (auto) 0.3 %; Lymphocytes # (auto) 1.46 K/uL (1.20-3.40); Lymphocytes % (auto) 20.4 %; Mean Corpuscular Hemoglobin 32.2 pg (25.0-34.0); Mean Corpuscular Volume 89.4 fL (80.0-100.0); Mean Platelet Volume 10.6 fL (9.4-12.4); Monocytes # (auto) 0.67 K/uL (0.11-0.59); Monocytes % (auto) 9.4 %; Neutrophils # (auto) 4.82 K/uL (1.40-6.50); Neutrophils % (auto) 67.6 %; Platelet Count 253 K/uL (130-400); RDW Coefficient of Variation 11.7 % (11.5-14.5); Red Blood Count 4.23 M/uL (4.20-5.40); White Blood Count 7.14 K/ul (4.8-10.8)
[2023-08-01 13:51] LABS: BUN Creatinine Ratio 19.1 (10-20); Calcium 9.9 mg/dl (8.6-10.3); Creatinine Clr Calc Pharmacy 61.7 ml/min; Est GFR (African American) 99.2 ml/min; Est GFR (Non-African American) 85.6 ml/min; Potassium 4.1 mmol/L (3.5-5.1)
--- NOTE | 2023-08-01 13:51 | CT Scan Report ---
CT OF THE LUMBAR SPINE CLINICAL HISTORY: lower back pain radiating to the left side s/p fall COMPARISON STUDY: CT of the abdomen and pelvis February 01, 2023. TECHNIQUE: Helical axial images of the lumbar spine were obtained. Sagittal and coronal reconstruct ions were viewed. Automated exposure control was utilized for the study. A dose lowering technique was utilized adhering to the principles of ALARA. FINDINGS: There is mild to moderate lumbar spine levoscoliosis. Vertebral body heights are maintained . There is no fracture. No osseous lesions are present. There is moderate multilevel disc space narro wing, osteophytosis and facet arthrosis within the lumbar spine. The central canal and neural foramen are suboptimally assessed given CT technique. Paravertebral soft tissues are unremarkable. Visualize d portions of the sacroiliac joints are intact. IMPRESSION: 1. No acute lumbar spine fracture or subluxation. 2. Moderate multilevel degenerative changes within the lumbar spine. 3. Mild to moderate lumbar spine levoscoliosis. ACT 112: Negative or not required by law. Electronically signed by: José Miguel Latham M.D. 08/01/2023 1:49 PM
[2023-08-01] MEDS: MoRPHine SULFATE 10 MG/ML CARP/VIAL IV STA (14:50)
--- NOTE | 2023-08-01 14:56 | History & Physical Report ---
Date of Service August 01, 2023 Assessment & Plan (1) Ambulatory dysfunction: (2) Arthritis: (3) Fall: (4) Lower back pain: Plan: - Admit to med surg - Continue pain control with toradol, steroids, and MS IV for breakthrough pain relief. May also continue lidocaine patch and voltaren gel. - CT lower back reviewed without acute findings. Consider MRI of lumbar spine if no improvement in symptoms - PT/OT consults - EKG reviewed and without abnormalities, no lab abnormalities - Allow regular diet HLD - May continue statin therapy, chronic, stable DVT ppx: teds, scds Lines: 1 PIV FEN/GI: regular diet CODE: FULL Dispo: From home, likely to remain in the hospital x 1-2 days A total of 75 minutes were spent with greater than 50% of that time face to face with the patient, personally reviewing all current laboratories, imaging studies, past medication reconciliation, outpatient chart review, and discussion with specialists to collaborate care for the patient with attending. Please see attending documentation for corrections and/or additions. History of Present Illness Chief Complaint: Lower back pain Primary Care Provider: Elijah Whittaker MD Thi sis a 73 yo F with PMHX of HLD, cataract removal surgery, diverticulitis hx who present to the hospital after a fall she sustained 2 weeks ago. She has had increasing difficulty with ambulation, and due to the pain, she has been unable to get up out of bed in the past 2 days. Her is present with her here at bedside. Patient states that she initially fell on July 10, whenever she was coming out of a restaurant in [facility]. She fell over towards the right side and caught herself however she did have some bruises and scratches over her face on her forehead her nose her arms and her chest. She did not seek medical care at that time as she did not think much of it. 4 days later she had a second fall [place] the [place], and felt that she had a left lower back pain which was sharp and stabbing in nature, nonradiating. She states that she sought out an ER visit at that time where she was placed on Flexeril and lidocaine patch, x-ray imaging was done of the left hip and pelvis which was negative (reviewed personally at bedside as her has brought the printed out report). After taking medication and taking it easy for a few days she was doing well. Yesterday they drove home here locally, and she states that when she awoke this morning and tried to walk her pain was significantly worse in her left lower back again sharp and stabbing in nature depending on her movement, nonradiating, no saddle anesthesia, no bowel or bladder incontinence. He has not taken any medication for it other than the lidocaine patch and Flexeril as previously prescribed. Pt CT lumbar spine/pelvis is negative here. Will admit for symptom control as well at PT/OT and steroids. Allergies Allergy/AdvReac Type Severity Reaction Status Date / Time No Known Allergies Allergy Verified 08/01/23 14:57 Home Medications Medication Instructions Recorded Confirmed Type diclofenac sodium 1 % topical gel 1 ea topical QID PRN Pain 10/03/21 08/01/23 History simvastatin 20 mg tablet 20 mg PO QPM 10/03/21 08/01/23 History ibuprofen 200 mg tablet (Advil) 200 mg PO UD PRN discomfort 02/01/23 08/01/23 History cyclobenzaprine 10 mg tablet 10 mg PO UD 08/01/23 08/01/23 History lidocaine 4 % topical patch 1 patch topical DAILY PRN Pain, 08/01/23 08/01/23 History (Lidocaine Pain Relief) Moderate Past Med/Surg History Medical History Arthritis Diverticulitis Surgical History H/O: hysterectomy 2000 History of parotidectomy Partial Family History Mother Ovarian cancer Father Stroke Hypertension Grandmother (Paternal) Cancer Sister Multiple sclerosis Leukemia Aunt Multiple sclerosis Social History Smoking Status: Former smoker Hx Alcohol Use: Yes (daily ) Alcohol Intake Frequency: 4 or More x per/Week Hx Substance Use: No Preferred Language: Georgian Feels Safe at Home: Yes Sunscreen Use: Yes Review of Systems Review of Systems: Constitutional: No fever, chills, sweats, fatigue or weakness Eyes: No diplopia, no changes in vision ENT: No sore throat, tinnitus, or trouble swallowing Respiratory: No shortness of breath, No dyspnea at rest or on exertion, no cough or sputum Cardiovascular: No chest pain, palpitations, or flutter Abdomen: No pain, No constipation, No diarrhea, No nausea, No vomiting Musculoskeletal: No calf pain, + left lower back pain as per HPI, no other joint pain, No swelling Genitourinary : No dysuria or urinary frequency, No hematuria Neurologic: No numbness/tingling, no difficulty with ambulation, no sensory or motor deficits Psychiatric: No depression or anxiety symptoms Endocrine: No fatigue, No weight changes Integumentary: No itch, No rash Physical Exam Physical Exam: General: awake, alert, no apparent distress, elderly white female Head: Normocephalic, atraumatic ENT: PERRL, EOMI, no pharyngeal exudate, mucous membranes moist Chest: Clear to auscultation, on room air, no adventitious breath sounds Cardiac: Regular rate and rhythm, no murmur, no JVD, normal peripheral pulses, good capillary refill Abdominal: NABS x 4 quadrants, soft, nondistended, nontender to palpation, no rebound or guarding Back: Point tenderness over SI joint on the left lower back, lidocaine patch in place, no erythema or ecchymosis, no deformity, spine with normal curvature Extremities: Normal inspection, no peripheral edema or erythema, calfs nontender to palpation Psych: Normal mood and affect Neuro: AAO x 3, strength intact bilaterally and rated 5/5, no motor deficits, speech is clear, no peripheral sensory deficits Results & Data Results & Data Vital Signs (Past 12 Hours) Vital Signs Temp Pulse Pulse Resp BP BP Pulse Ox 08/01/23 13:48 63 08/01/23 13:15 97 08/01/23 13:15 66 21 174/102 H 97 08/01/23 12:52 37.0 C 77 22 174/102 H 99 O2 Del Method 08/01/23 13:48 08/01/23 13:15 Room Air 08/01/23 13:15 08/01/23 12:52 Room Air Laboratory Results 08/01/23 13:10 WBC 7.14 RBC 4.23 Hgb 13.6 Hct 37.8 MCV 89.4 MCH 32.2 MCHC 36.0 RDW Std Deviation 38.0 RDW Coeff of Mery 11.7 Plt Count 253 MPV 10.6 Immature Gran % (Auto) 0.3 Neut % (Auto) 67.6 Lymph % (Auto) 20.4 [place] % (Auto) 9.4 Eos % (Auto) 1.5 Baso % (Auto) 0.8 Neut # (Auto) 4.82 Lymph # (Auto) 1.46 [place] # (Auto) 0.67 H Eos # (Auto) 0.11 Baso # (Auto) 0.06 Immature Gran # (Auto) 0.02 Sodium 138 Potassium 4.1 Chloride 105 Carbon Dioxide 26 Anion Gap 7 BUN 13 Creatinine 0.68 Est Cr Clr Drug Dosing 61.7 Est GFR ( Amer) 99.2 Est GFR (Non-Af Amer) 85.6 BUN/Creatinine Ratio 19.1 Glucose 97 Calcium 9.9 Diagnostic Findings Lumbar Spine CT 08/01/23 13:01 CT OF THE LUMBAR SPINE CLINICAL HISTORY: lower back pain radiating to the left side s/p fall COMPARISON STUDY: CT of the abdomen and pelvis February 01, 2023. TECHNIQUE: Helical axial images of the lumbar spine were obtained. Sagittal and coronal reconstructions were viewed. Automated exposure control was utilized for the study. A dose lowering technique was utilized adhering to the principles of ALARA. FINDINGS: There is mild to moderate lumbar spine levoscoliosis. Vertebral body heights are maintained. There is no fracture. No osseous lesions are present. There is moderate multilevel disc space narrowing, osteophytosis and facet arthrosis within the lumbar spine. The central canal and neural foramen are suboptimally assessed given CT technique. Paravertebral soft tissues are unremarkable. Visualized portions of the sacroiliac joints are intact. IMPRESSION: 1. No acute lumbar spine fracture or subluxation. 2. Moderate multilevel degenerative changes within the lumbar spine. 3. Mild to moderate lumbar spine levoscoliosis. ACT 112: Negative or not required by law. Electronically signed by: José Miguel Latham M.D. 08/01/2023 1:49 PM ECG Additional Comments: Reviewed personally, NSR, no ST wave inversions or signs of ischemia Code Status & VTE Plan Code Status Full code discussed with patient at bedside Supervising Physician Co-Signing Physician Notes Attending addendum: The patient was seen and examined in emergency room in presence of the She has had a fall about 2 weeks ago and injured her back She was in [place] [facility] and was given cyclobenzaprine Her condition got worse today that she is hardly able to move around Denies any radiation and denies any problem with urine or bowel habit or any weakness any side of the body On examination Lying in bed in pain Hemodynamically stable with blood pressure on the upper side Chest-clear to auscultate bilaterally Heart-S1-S2, regular Abdomen -benign MS-localized tenderness lower lumbar area Straight leg raising negative for any pain 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
[2023-08-01] MEDS ORDERED: ONDANSETRON INJ 2 MG/ML 2 ML VIAL IV PRN (19:33)
[2023-08-01] MEDS ORDERED: ACETAMINOPHEN 500 MG TAB PO PRN (19:33)
[2023-08-01] MEDS: KETOROLAC TROMETHAMINE 15 MG/ML VIAL IV PRN (22:30)
[2023-08-01] MEDS: CYCLOBENZAPRINE HCL 10 MG TAB PO PRN (22:31)
[2023-08-01] MEDS: SIMVASTATIN 20 MG TAB PO SCH (23:46)
[2023-08-02] MEDS: MoRPHine SULFATE 2 MG/ML CARP IV PRN (01:29)
[2023-08-02 06:10] LABS: Appearance Urine Cloudy (Clear); Bacteria Urine Automated Negative (Negative); Bilirubin Urine Negative (Negative); Blood Urine Negative (Negative); Color Urine Dark Yellow; Epithelial Cell Urine Auto >30 /lpf (0-5); Glucose Urine UA Negative (Negative); Ketones Urine Negative (Negative); Leukocyte Esterase Urine Negative (Negative); Nitrite Urine Negative (Negative); Protein Urine Negative (Negative); RBC Urine Automated 0-4 /hpf (0-4); Specific Gravity Urine 1.027 (1.000-1.030); Urobilinogen Urine Negative (Negative)
[2023-08-02] MEDS: predniSONE 20 MG TAB PO SCH (08:24)
[2023-08-02] MEDS ORDERED: oxyCODONE HCL IR 5 MG TAB (IMMEDIATE RELEASE) PO PRN (08:26)
[2023-08-02] MEDS: ACETAMINOPHEN 500 MG TAB PO SCH (08:53)
[2023-08-02] MEDS: DICLOFENAC SOD 1% GEL 100 GM TUBE EXT PRN (08:53)
--- NOTE | 2023-08-02 17:23 | Hospitalist Progress Note ---
Date of Service August 02, 2023 Assessment & Plan (1) Ambulatory dysfunction: (2) Arthritis: (3) Fall: (4) Lower back pain: Plan: - Admit to med surg - Continue pain control with toradol, steroids, and MS IV for breakthrough pain relief. May also continue lidocaine patch and voltaren gel. - CT lower back reviewed without acute findings. Consider MRI of lumbar spine if no improvement in symptoms - PT/OT consults - EKG reviewed and without abnormalities, no lab abnormalities - Allow regular diet 08/01 Likely sciatica, possible lumbar radiculopathy MRI lumbar spine ordered Orthopedic spine service consulted Continue prednisone Add gabapentin 100 mg twice daily Continue as needed Toradol, morphine PT and OT evaluation HLD - May continue statin therapy, chronic, stable DVT ppx: teds, scds Lines: 1 PIV FEN/GI: regular diet CODE: FULL Dispo: From home, PT/OT eval plan of care discussed with patient and her at the bedside in detail and at length all questions answered They are understanding, agreeable, comfortable with the plan of care Admission and Anticipated Discharge Date Admission Date: August 01, 2023 Subjective Follow-up for persistent lower back pain, etc. Seen resting in bed, not in distress States she still having significant lower back, left lower extremity pain with movement Pain okay while at rest Has occasional tingling/numbness on the left lower extremity as well no chest pain, dyspnea, palpitations, dizziness No other new symptoms Review of Systems Review of Systems: all noted and negative except for above Physical Exam Physical Exam: General- oriented x 3, not in distress, speaks in sentences with no effort or accessory muscle use Eyes- anicteric Neck- no JVD Lungs- clear breath sounds bilaterally, no rales/wheezes Heart- normal rate, regular rhythm; no murmurs Abdomen- normal bowel sounds, nondistended, soft, nontender Extremities- no pretibial edema, no calf tenderness Positive mild tenderness on the left buttock area Back-no tenderness Neuro- alert, oriented x 3; no gross focal neurologic deficits Skin- warm & dry Results & Data Results & Data Vital Signs (Past 12 Hours) Vital Signs Temp Pulse Pulse Resp BP Pulse Ox O2 Del Method 08/02/23 16:02 36.6 C 73 18 160/74 H 95 Room Air 08/02/23 11:17 36.8 C 74 16 120/66 93 Room Air 08/02/23 07:41 36.8 C 65 14 103/62 95 Room Air all noted and reviewed including below (4) Lower back pain Back pain laterality: unspecified Chronicity: acute Sciatica laterality: sciatica laterality unspecified Sciatica presence: with sciatica Qualified Code(s): M54.40 - Lumbago with sciatica, unspecified side
--- NOTE | 2023-08-02 18:01 | Magnetic Resonance Report ---
MRI OF THE LUMBAR SPINE WITHOUT IV CONTRAST CLINICAL HISTORY: Low back pain. Radiculopathy. COMPARISON STUDY: CT of the lumbar spine dated 08/01/2023. TECHNIQUE: MRI of the lumbar spine is performed utilizing various T1 and T2-weighted sequences in the axial and sagittal planes. IV contrast was not administered for this examination. The examination is degraded by motion artifact. FINDINGS: Lumbar spine: Vertebral body height and alignment are maintained through the lumbar spine. Marrow sig nal intensity is heterogeneous. There is mild lumbar levocurvature centered at L3. Anterior and later al marginal osteophytes are seen throughout. The transverse and spinous processes appear intact. Ther e is no evidence of spondylolysis. Chronic degenerative endplate change is seen at all lumbar levels. There is endplate edema at T12-L1, L2-L3, L4-L5, and L5-S1. There are several spinal hemangiomas. No destructive bony lesion is seen. Intervertebral discs: Disc desiccation and loss of height is seen throughout the lumbar spine. Loss o f height is [id number] at all levels between T12-L1 and L4-L5. Spinal cord: The visualized spinal cord is normal in morphology and signal intensity. The conus medul loreto terminates at the level of L1. The nerve roots of the cauda equina are normal in morphology. L1-L2: There is a broad-based posterior disc bulge. There is only mild central canal stenosis at this level with a minimum AP diameter of 7 mm. Lateral disc bulges contribute to minimal subarticular jessica nosis. The neural foramina appear patent. L2-L3: There is broad-based posterior disc bulge, which abuts the transiting nerve roots. There is on ly mild acquired compromise of the central canal at this level with a minimum AP diameter of 8 mm. La teral disc bulge contributes to bilateral subarticular stenosis, right greater than left. In conjunct ion with facet arthropathy, there is [id number] right neural foraminal stenosis. The left crispin ral foramen is patent. L3-L4: There is broad-based posterior disc bulge, which abuts the transiting nerve roots. There is no significant acquired compromise of the central canal. Small lateral disc bulges contribute to bilate ral subarticular stenosis. In conjunction with facet arthropathy, there is obxr-bs-vlwxieto right crispin ral foraminal stenosis. The left neural foramen is patent. L4-L5: There is broad-based posterior disc bulge, which abuts the transiting nerve roots. In conjunct ion with hypertrophy of the ligamentum flavum, there is pkhqklrs-yh-jnfuaf central canal stenosis at this level with a minimum AP canal diameter of 5.5 mm. Lateral disc bulges contribute to bilateral givens barticular stenosis, left greater than right. There is likely impingement of the exiting left L4 nerv e root. In conjunction with facet arthropathy, there is mild right and severe left neural foraminal s tenosis. L5-S1: There is broad-based posterior disc bulge. No acquired compromise of the central canal is seen . Lateral disc bulge is seen bilaterally and contributes to subarticular stenosis. This may impinge o n the exiting left L5 nerve root. In conjunction with facet arthropathy, there is moderate right and severe left neural foraminal stenosis. Sacrum: The visualized sacrum is normal in morphology and signal intensity. Soft tissues: The paraspinous soft tissues are within normal limits. The retroperitoneal structures a re grossly unremarkable but incompletely assessed. IMPRESSION: 1. Multilevel lumbosacral spondylosis and scoliosis as above with multilevel acquired compromise of t he central canal. See discussion for detailed level by level analysis. 2. Degenerative disc disease as above with multilevel endplate change and edema. 3. No destructive bony process is seen. 4. Additional findings as above. Dictated: 08/02/2023 5:24 PM Transcribed: 08/02/2023 5:52 PM Abhishek [id number] [email or web address] Electronically signed by: Jem Sweet M.D. 08/02/2023 6:00 PM
[2023-08-02] MEDS: GABAPENTIN 100 MG CAP PO SCH (20:05)
--- NOTE | 2023-08-03 11:58 | Orthopedic Consultation ---
Date of Consultation August 03, 2023 Assessment & Plan (1) Sacroiliitis: MRI and CAT scan lumbar spine available for review. Of able to review them personally. They demonstrate on the CAT scan possible bilateral pars defect. There is significant facet arthropathy at multiple levels. The MRI confirms significant facet arthropathy and least moderate stenosis L4-L5. Plan at this time I have had a discussion with the patient regarding the potential pain generator for incapacitating symptoms. It could be a combination of facet mediated pain versus sacroiliitis. Would like to consult interventional pain management for their input and possible outpatient treatment. In the meantime we will initiate physical therapy. History of Present Illness Reason for Consultation: Acute back pain Attending Physician: Stevan Davalos MD History of Present Illness This is a very pleasant 73-year-old female who presents emergency room yesterday with onset of acute back pain while trying to get out of her car. She describes involving the lumbosacral junction to the left side and left upper buttock. She denies any radicular type symptoms. She states she has had this occur 2 other times. She is unable to describe any specific precipitating event. She denies any previous history. She has not undergone recent physical therapy or injections. She states normally she is very active does not use assistive devices to ambulate. She can walk several miles at a time without difficulty. Allergies Allergy/AdvReac Type Severity Reaction Status Date / Time No Known Allergies Allergy Verified 08/01/23 14:57 Home Medications Medication Instructions Recorded Confirmed Type diclofenac sodium 1 % topical gel 1 ea topical QID PRN Pain 10/03/21 08/01/23 History simvastatin 20 mg tablet 20 mg PO QPM 10/03/21 08/01/23 History ibuprofen 200 mg tablet (Advil) 200 mg PO UD PRN discomfort 02/01/23 08/01/23 History cyclobenzaprine 10 mg tablet 10 mg PO UD 08/01/23 08/01/23 History lidocaine 4 % topical patch 1 patch topical DAILY PRN Pain, 08/01/23 08/01/23 History (Lidocaine Pain Relief) Moderate Patient History Medical History Arthritis Diverticulitis Surgical History H/O: hysterectomy 2000 History of parotidectomy Partial Family History Mother Ovarian cancer Father Stroke Hypertension Grandmother (Paternal) Cancer Sister Multiple sclerosis Leukemia Aunt Multiple sclerosis Social History Smoking Status: Never smoker Hx Alcohol Use: No Hx Substance Use: No Preferred Language: Georgian Communication Ability: Effective Beauty Therapist Required: No Beliefs That Will Affect Care: Tenriism Tenriism Beliefs: states she wants pastoral care involved in case of emergency or decline Current Living Situation: Spouse Current Living Situation Comment: with Feels Safe at Home: Yes Safety Concerns: Feels Safe At This Time Sunscreen Use: Yes Assistive Devices: None Physical Exam Physical Exam: On exam the patient is currently in bed. She exhibits +5-5 plantarflexion dorsiflexion extensor houses longus. Sensory symmetric intact. She has negative logroll. No tension signs. Exam of her lumbar spine demonstrates no midline discomfort or pain to the right paravertebral musculature. On the left she has exquisite tenderness palpation along the lumbosacral junction and SI joints. Results & Data Vital Signs (Past 12 Hours) Vital Signs Temp Pulse Resp BP Pulse Ox O2 Del Method 08/03/23 08:25 36.3 C L 60 18 178/81 H 96 Room Air
--- NOTE | 2023-08-03 13:47 | Hospitalist Progress Note ---
Date of Service August 03, 2023 Assessment & Plan (1) Lower back pain: (2) Ambulatory dysfunction: (3) Sciatica: (4) Sacroiliitis: Plan: (1) Ambulatory dysfunction: (2) Arthritis: (3) Fall: (4) Lower back pain: Plan: SEVERE LOW BACK PAIN, FALLS, AMBULATORY DYSFUNCTION SECONDARY TO SCIATICA, SACROILIITIS MRI lumbar spine: Multilevel disc bulging, possible L4/L5 nerve root compression Orthopedic spine service consulted, recommend pain management service consultation for possible intervention Continue prednisone 40 mg p.o. daily day #3 Added gabapentin 100 mg twice daily, continue Continue as needed Toradol, morphine PT and OT evaluation HLD - May continue statin therapy, chronic, stable DVT ppx: teds, scds Lines: 1 PIV FEN/GI: regular diet CODE: FULL Dispo: From home, PT/OT eval plan of care discussed with patient at the bedside in detail and at length all questions answered She is understanding, agreeable, comfortable with the plan of care Admission and Anticipated Discharge Date Admission Date: August 01, 2023 Subjective Follow-up for severe low back pain, falls, etc. Seen resting in bed, sitting up, not in distress States she feels fine when at rest, but still feels significant pain with minimal movement, ambulation Currently, no leg weakness or numbness no chest pain, dyspnea, palpitations, dizziness Review of Systems Constitutional: all noted and negative except for above Physical Exam Physical Exam: General- oriented x 3, not in distress, speaks in sentences with no effort or accessory muscle use Eyes- anicteric Neck- no JVD Lungs- clear breath sounds bilaterally, no rales/wheezes Heart- normal rate, regular rhythm; no murmurs Abdomen- normal bowel sounds, nondistended, soft, nontender Extremities- no pretibial edema, no calf tenderness Neuro- alert, oriented x 3; no gross focal neurologic deficits Skin- warm & dry Results & Data Results & Data Vital Signs (Past 12 Hours) Vital Signs Temp Pulse Resp BP Pulse Ox O2 Del Method 08/03/23 08:25 36.3 C L 60 18 178/81 H 96 Room Air all noted and reviewed including below (1) Lower back pain Back pain laterality: unspecified Chronicity: acute Sciatica laterality: sciatica laterality unspecified Sciatica presence: with sciatica Qualified Code(s): M54.40 - Lumbago with sciatica, unspecified side (3) Sciatica Laterality: left Qualified Code(s): M54.32 - Sciatica, left side
--- NOTE | 2023-08-04 09:21 | Pain Management Consultation ---
Date of Consultation August 04, 2023 Assessment & Plan (1) Sacroiliitis: (2) Lower back pain: Back pain laterality: unspecified Chronicity: acute Sciatica laterality: sciatica laterality unspecified Sciatica presence: with sciatica Qualified Code(s): M54.40 - Lumbago with sciatica, unspecified side (3) Lumbosacral spondylosis: Spinal osteoarthritis complication: without myelopathy or radiculopathy Qualified Code(s): M47.817 - Spondylosis without myelopathy or radiculopathy, lumbosacral region (4) Spinal stenosis of lumbar region: Neurogenic claudication status: without neurogenic claudication Qualified Code(s): M48.061 - Spinal stenosis, lumbar region without neurogenic claudication (5) Lumbar degenerative disc disease: (6) Scoliosis deformity of spine: Scoliosis type: unspecified scoliosis Spinal region: lumbosacral Qualified Code(s): M41.9 - Scoliosis, unspecified Plan The patient did have presence of exquisite tenderness over the left SI joint region, as well as questionably over the left-sided lumbosacral facet joints. However, the focal point of tenderness and pain did seem to be slightly more lateral than the facet joints. She had multiple positive provocative tests today indicating sacroiliitis at this location. Imaging is consistent with degenerative lumbosacral spine changes. 1. Patient is recommended to undergo fluoroscopic guided LEFT SI joint injection. * This will be facilitated as an outpatient at the pain clinic. * They understand that this is a combination of local anesthetic and steroid, and it can be up to 2 weeks until the steroid takes effect. * The risks, benefits, and alternatives of the procedure were discussed in detail with the patient, and in full understanding of the procedure to be performed, the patient elects to proceed as discussed once she is discharged and can get established at the pain clinic. 2. She does also have lumbosacral facet joint arthropathy, but we would reserve any medial branch block injections, and follow-on RFA, for if their symptoms are not addressed well w/ the SI joint injection. 3. Recommend 200 mg daily of Celebrex for anti-inflammatory purposes to address the arthritis. * No changes to inpatient pain related medication regimen are made. 4. Patient is recommended to attend formal therapy interventions after the injections for continued gait training, as well as modalities and stretching/st rengthening exercises. 5. Based on the lumbar spine MRI, and even though the patient does not currently demonstrate any radicular type component of pain/paresthesias into either lower extremity, she may still have a degree of pain coming from the severe left-sided neuroforaminal stenosis at L4-5 and L5-S1, which is manifesting as more of a localized left lumbosacral region pain. * Thus, lumbar interlaminar vs. transforaminal NATALIE may also be an option pending response to the SI joint injection. 6. We will work to schedule the procedure accordingly and patient will f/u w/ an outpatient visit. History of Present Illness Reason for Consultation: Acute left lumbosacral pain Attending Physician: Addie Callahan MD History of Present Illness Patient is a pleasant 73-year-old female that presented to the [facility] ED on 08/01/2023 for severe left-sided low back pain. She says that she has had 3 instances over the past 3 weeks of very severe pain to this location. When the pain comes about, it can cause her to fall, which has happened on occasion. Patient says that 1 of these pain flareups happened when they were on vacation in [place], and she had to go to the ED down there. Today, the patient is stating that she only has pain to this location when she is moving around in certain ways. She really has little to no pain at rest. She is denying any radicular type pain into her buttocks or left lower extremity, but the emergency room note does mention that the pain was radiating to the left lower back and into the left leg. There was mention of sciatica. A lumbar spine MRI did demonstrate multilevel lumbosacral spondylosis and scoliosis with acquired compromise of the central canal. The most significant area of central stenosis seems to be at the L4-5 level, where there is a minimum AP canal diameter of 5.5 mm. In addition, there is severe left-sided neuroforaminal stenosis at L4-5 and L5-S1. Allergies Allergy/AdvReac Type Severity Reaction Status Date / Time No Known Allergies Allergy Verified 08/01/23 14:57 Home Medications Medication Instructions Recorded Confirmed Type diclofenac sodium 1 % topical gel 1 ea topical QID PRN Pain 10/03/21 08/01/23 History simvastatin 20 mg tablet 20 mg PO QPM 10/03/21 08/01/23 History ibuprofen 200 mg tablet (Advil) 200 mg PO UD PRN discomfort 02/01/23 08/01/23 History cyclobenzaprine 10 mg tablet 10 mg PO UD 08/01/23 08/01/23 History lidocaine 4 % topical patch 1 patch topical DAILY PRN Pain, 08/01/23 08/01/23 History (Lidocaine Pain Relief) Moderate Patient History Medical History (Updated 08/04/23 @ 09:13 by Levy Vaughn PA-C) Scoliosis deformity of spine Lumbar degenerative disc disease Spinal stenosis of lumbar region Lumbosacral spondylosis Arthritis Diverticulitis Surgical History History of parotidectomy Partial H/O: hysterectomy 1999 Family History Mother Ovarian cancer Father Stroke Hypertension Grandmother (Paternal) Cancer Sister Multiple sclerosis Leukemia Aunt Multiple sclerosis Social History Smoking Status: Never smoker Hx Alcohol Use: No Hx Substance Use: No Preferred Language: French Communication Ability: Effective Change Management Expert Required: No Beliefs That Will Affect Care: Baptist Baptist Beliefs: states she wants pastoral care involved in case of emergency or decline Current Living Situation: Spouse Current Living Situation Comment: with Feels Safe at Home: Yes Safety Concerns: Feels Safe At This Time Sunscreen Use: Yes Assistive Devices: None Physical Exam Physical Exam: GENERAL: Speech and cognition is intact. Mood and affect is appropriate. Does not appear in acute distress. HEAD: Normocephalic; atraumatic. NECK: Trachea is midline. CHEST: Regular chest respiration and excursion. EXTREMITIES: No TTP. Distal sensation and pulses intact bilaterally. BACK: Diminished ROM.+ Left SI joint tenderness. Equivocal left lumbosacral facet joint tenderness. No midline tenderness. Pain is worsened with facet load bearing. Pain is worsened with extension. No paraspinal, quadratus lumborum, piriformis, or gluteal tenderness or spasm.Inspection/palpation demonstrates some loss of normal lumbar lordotic curvature. NEURO: CN II-XII grossly intact with no focal deficits noted. Able to stand at bedside with no significant difficulty. Able to arise from seated position and return to seated position at bedside awake, alert, and oriented x 3. Distal sensation of lower legs intact and equal bilaterally. Patellar Reflex R 1+L 1+ Achilles Reflex R 1+L 1+ Negative clonus bilaterally SKIN: No lesions, erythema, or rashes noted. LOWER EXTREMITIES: Negative straight leg raise bilaterally. R Hip flexion 5/5; hip extension 5/5; knee extension 5/5; knee flexion 5/5; ankle dorsiflexion 5/5; ankle plantar flexion 5/5; EHL 5/5 L Hip flexion 5/5; hip extension 5/5; knee extension 5/5; knee flexion 5/5; ankle dorsiflexion 5/5; ankle plantar flexion 5/5; EHL 5/5 Special tests: R Deloris maneuver: L Deloris maneuver: + R Thigh thrust: L Thigh thrust: + R SI compression test: L SI compression test: + Negative slump test bilateral Results (Pain Clinic) Diagnostic Review MRI Findings: MRI OF THE LUMBAR SPINE WITHOUT IV CONTRAST CLINICAL HISTORY: Low back pain. Radiculopathy. COMPARISON STUDY: CT of the lumbar spine dated 08/01/2023. TECHNIQUE: MRI of the lumbar spine is performed utilizing various T1 and T2- weighted sequences in the axial and sagittal planes. IV contrast was not administered for this examination. The examination is degraded by motion artifact. FINDINGS: Lumbar spine: Vertebral body height and alignment are maintained through the lumbar spine. Marrow signal intensity is heterogeneous. There is mild lumbar levocurvature centered at L3. Anterior and lateral marginal osteophytes are seen throughout. The transverse and spinous processes appear intact. There is no evidence of spondylolysis. Chronic degenerative endplate change is seen at all lumbar levels. There is endplate edema at T12-L1, L2-L3, L4-L5, and L5-S1. There are several spinal hemangiomas. No destructive bony lesion is seen. Intervertebral discs: Disc desiccation and loss of height is seen throughout the lumbar spine. Loss of height is ukafjyme-mg-jfaonv at all levels between T12-L1 and L4-L5. Spinal cord: The visualized spinal cord is normal in morphology and signal intensity. The conus medullaris terminates at the level of L1. The nerve roots of the cauda equina are normal in morphology. L1-L2: There is a broad-based posterior disc bulge. There is only mild central canal stenosis at this level with a minimum AP diameter of 7 mm. Lateral disc bulges contribute to minimal subarticular stenosis. The neural foramina appear patent. L2-L3: There is broad-based posterior disc bulge, which abuts the transiting nerve roots. There is only mild acquired compromise of the central canal at this level with a minimum AP diameter of 8 mm. Lateral disc bulge contributes to bilateral subarticular stenosis, right greater than left. In conjunction with facet arthropathy, there is xboposwy-pl-pmdzih right neural foraminal stenosis. The left neural foramen is patent. L3-L4: There is broad-based posterior disc bulge, which abuts the transiting n erve roots. There is no significant acquired compromise of the central canal. Small lateral disc bulges contribute to bilateral subarticular stenosis. In conjunction with facet arthropathy, there is ergm-vn-pdogyvqu right neural foraminal stenosis. The left neural foramen is patent. L4-L5: There is broad-based posterior disc bulge, which abuts the transiting nerve roots. In conjunction with hypertrophy of the ligamentum flavum, there is hknbxqsd-ir-zbahlo central canal stenosis at this level with a minimum AP canal diameter of 5.5 mm. Lateral disc bulges contribute to bilateral subarticular s tenosis, left greater than right. There is likely impingement of the exiting left L4 nerve root. In conjunction with facet arthropathy, there is mild right and severe left neural foraminal stenosis. L5-S1: There is broad-based posterior disc bulge. No acquired compromise of the central canal is seen. Lateral disc bulge is seen bilaterally and contributes to subarticular stenosis. This may impinge on the exiting left L5 nerve root. In conjunction with facet arthropathy, there is moderate right and severe left neural foraminal stenosis. Sacrum: The visualized sacrum is normal in morphology and signal intensity. Soft tissues: The paraspinous soft tissues are within normal limits. The retroperitoneal structures are grossly unremarkable but incompletely assessed. IMPRESSION: 1. Multilevel lumbosacral spondylosis and scoliosis as above with multilevel acquired compromise of the central canal. See discussion for detailed level by level analysis. 2. Degenerative disc disease as above with multilevel endplate change and edema. 3. No destructive bony process is seen. 4. Additional findings as above. Dictated: 08/02/2023 5:24 PM Transcribed: 08/02/2023 5:52 PM Abhishek [id number] [email or web address] Electronically signed by: Jem Sweet M.D. 08/02/2023 6:00 PM Dictated: 08/02/23 1724 Transcribed: 08/02/[address] Findings: CT OF THE LUMBAR SPINE CLINICAL HISTORY: lower back pain radiating to the left side s/p fall COMPARISON STUDY: CT of the abdomen and pelvis February 01, 2023. TECHNIQUE: Helical axial images of the lumbar spine were obtained. Sagittal and coronal reconstructions were viewed. Automated exposure control was utilized for the study. A dose lowering technique was utilized adhering to the principles of ALARA. FINDINGS: There is mild to moderate lumbar spine levoscoliosis. Vertebral body heights are maintained. There is no fracture. No osseous lesions are present. There is moderate multilevel disc space narrowing, osteophytosis and facet arthrosis within the lumbar spine. The central canal and neural foramen are suboptimally assessed given CT technique. Paravertebral soft tissues are unremarkable. Visualized portions of the sacroiliac joints are intact. IMPRESSION: 1. No acute lumbar spine fracture or subluxation. 2. Moderate multilevel degenerative changes within the lumbar spine. 3. Mild to moderate lumbar spine levoscoliosis. ACT 112: Negative or not required by law. Electronically signed by: José Miguel Latham M.D. 08/01/2023 1:49 PM Dictated: 08/01/23 1341 Transcribed: 08/01/23 1341
--- NOTE | 2023-08-04 13:10 | Discharge Summary ---
Date of Service August 04, 2023 Admission HPI Per Admitting Provider 73 yo F with PMHX of HLD, cataract removal surgery, diverticulitis hx who present to the hospital after a fall she sustained 2 weeks ago. She has had increasing difficulty with ambulation, and due to the pain, she has been unable to get up out of bed in the past 2 days. Her is present with her here at bedside. Patient states that she initially fell on July 10, whenever she was coming out of a restaurant in [facility]. She fell over towards the right side and caught herself however she did have some bruises and scratches over her face on her forehead her nose her arms and her chest. She did not seek medical care at that time as she did not think much of it. 4 days later she had a second fall when [place] the [place], and felt that she had a left lower back pain which was sharp and stabbing in nature, nonradiating. She states that she sought out an ER visit at that time where she was placed on Flexeril and lidocaine patch, x-ray imaging was done of the left hip and pelvis which was negative (reviewed personally at bedside as her has brought the printed out report). After taking medication and taking it easy for a few days she was doing well. Yesterday they drove home here locally, and she states that when she awoke this morning and tried to walk her pain was significantly worse in her left lower back again sharp and stabbing in nature depending on her movement, nonradiating, no saddle anesthesia, no bowel or bladder incontinence. He has not taken any medication for it other than the lidocaine patch and Flexeril as previously prescribed. Pt CT lumbar spine/pelvis is negative here. Admission Exam Per Admitting Provider General: awake, alert, no apparent distress, elderly white female Head: Normocephalic, atraumatic ENT: PERRL, EOMI, no pharyngeal exudate, mucous membranes moist Chest: Clear to auscultation, on room air, no adventitious breath sounds Cardiac: Regular rate and rhythm, no murmur, no JVD, normal peripheral pulses, good capillary refill Abdominal: NABS x 4 quadrants, soft, nondistended, nontender to palpation, no rebound or guarding Back: Point tenderness over SI joint on the left lower back, lidocaine patch in place, no erythema or ecchymosis, no deformity, spine with normal curvature Extremities: Normal inspection, no peripheral edema or erythema, calfs nontender to palpation Psych: Normal mood and affect Neuro: AAO x 3, strength intact bilaterally and rated 5/5, no motor deficits, speech is clear, no peripheral sensory deficits Principal Diagnosis Lower back pain Ambulatory dysfunction Sacroilitis Discharge Exam Constitutional + well hydrated; no acute distress Eyes PERRL, conjunctivae normal, anicteric sclerae ENMT external ear and nose normal, oropharynx normal Respiratory normal respiratory effort, lungs clear to auscultation Cardiovascular Rate/Rhythm: regular rate and regular rhythm S1 S2 Gastrointestinal (Abdomen) normal bowel sounds, soft, nontender, no hepatosplenomegaly Musculoskeletal no cyanosis or clubbing, extremities motor strength 5/5 No spinal tenderness during my exam Neurologic PERRL, EOMI, accommodation nl, no face palsy, no dysarthria Psychiatric A+Ox3, euthymic affect Discharge Data Allergies Allergy/AdvReac Type Severity Reaction Status Date / Time No Known Allergies Allergy Verified 08/01/23 14:57 Consultations 08/01/23 14:17 ED Decision to Admit Stat 08/02/23 15:57 Consult Orthopedic Surgery Routine 08/03/23 11:58 Consult Pain Management Routine Ordered Studies 08/01/23 13:01 CT lumbar spine wo con Stat 08/02/23 15:57 MRI Lumbar Spine [MR lumbar spine wo con] Routine FINDINGS: Lumbar spine: Vertebral body height and alignment are maintained through the lumbar spine. Marrow signal intensity is heterogeneous. There is mild lumbar levocurvature centered at L3. Anterior and lateral marginal osteophytes are seen throughout. The transverse and spinous processes appear intact. There is no evidence of spondylolysis. Chronic degenerative endplate change is seen at all lumbar levels. There is endplate edema at T12-L1, L2-L3, L4-L5, and L5-S1. There are several spinal hemangiomas. No destructive bony lesion is seen. Intervertebral discs: Disc desiccation and loss of height is seen throughout the lumbar spine. Loss of height is inacbzqh-sv-ezcutm at all levels between T12-L1 and L4-L5. Spinal cord: The visualized spinal cord is normal in morphology and signal intensity. The conus medullaris terminates at the level of L1. The nerve roots o f the cauda equina are normal in morphology. L1-L2: There is a broad-based posterior disc bulge. There is only mild central canal stenosis at this level with a minimum AP diameter of 7 mm. Lateral disc bulges contribute to minimal subarticular stenosis. The neural foramina appear patent. L2-L3: There is broad-based posterior disc bulge, which abuts the transiting nerve roots. There is only mild acquired compromise of the central canal at this level with a minimum AP diameter of 8 mm. Lateral disc bulge contributes to bilateral subarticular stenosis, right greater than left. In conjunction with facet arthropathy, there is rcmqswix-yn-bdelcs right neural foraminal stenosis. The left neural foramen is patent. L3-L4: There is broad-based posterior disc bulge, which abuts the transiting nerve roots. There is no significant acquired compromise of the central canal. Small lateral disc bulges contribute to bilateral subarticular stenosis. In conjunction with facet arthropathy, there is ycup-db-exgsgtkj right neural foraminal stenosis. The left neural foramen is patent. L4-L5: There is broad-based posterior disc bulge, which abuts the transiting nerve roots. In conjunction with hypertrophy of the ligamentum flavum, there is ttrsdovd-jh-albjct central canal stenosis at this level with a minimum AP canal diameter of 5.5 mm. Lateral disc bulges contribute to bilateral subarticular stenosis, left greater than right. There is likely impingement of the exiting left L4 nerve root. In conjunction with facet arthropathy, there is mild right and severe left neural foraminal stenosis. L5-S1: There is broad-based posterior disc bulge. No acquired compromise of the central canal is seen. Lateral disc bulge is seen bilaterally and contributes to subarticular stenosis. This may impinge on the exiting left L5 nerve root. In conjunction with facet arthropathy, there is moderate right and severe left neural foraminal stenosis. Sacrum: The visualized sacrum is normal in morphology and signal intensity. Soft tissues: The paraspinous soft tissues are within normal limits. The retroperitoneal structures are grossly unremarkable but incompletely assessed. IMPRESSION: 1. Multilevel lumbosacral spondylosis and scoliosis as above with multilevel acquired compromise of the central canal. See discussion for detailed level by level analysis. 2. Degenerative disc disease as above with multilevel endplate change and edema. 3. No destructive bony process is seen. 4. Additional findings as above. Hospital Course (1) Lower back pain: (2) Ambulatory dysfunction: (3) Sciatica: (4) Sacroiliitis: (1) Ambulatory dysfunction: (2) Arthritis: (3) Fall: (4) Lower back pain: SEVERE LOW BACK PAIN, FALLS, AMBULATORY DYSFUNCTION SECONDARY TO SCIATICA, SACROILIITIS MRI lumbar spine: Multilevel disc bulging, possible L4/L5 nerve root compression Orthopedic spine service was consulted and recommend pain management service c onsultation for possible intervention Received prednisone inpatient and started on gabapentin 100 mg twice daily graves registration specialist evaluated and recommended Celebrex 200mg daily and for patient to follow up with them in the office for possible steroid injection She was evaluated by PT/OT while inpatient Patient reports significant improvement in pain today. Reports pain is 1/10 at time of my eval. Has not required any opioids in over 24h Continue home statin therapy, chronic, stable Total Time Total Time Spent Total Time Spent (In Minutes): 40 Total Time Includes: Examination of the Patient, Discharge Planning and Medication Reconciliation Discharge Plan Discharge Items Patient Disposition: Home - Self-Care Reason For Visit: AMBULATORY DYSFUNCTION Discharge Diagnosis: Lower back pain Ambulatory dysfunction Sacroilitis Activity: Resume your previous activity Lifting: None Non-emergency contact: Primary Care Provider and Pain Management Call non-emergency contact if: you have any medication questions and your symptoms worsen Follow-up/Referrals: Gena Dumas DO [Physician] - (graves registration specialist) Elijah Whittaker MD [Primary Care Provider] - (Date & Time 08/10/2023 2:40 PM Provider Elijah Whittaker MD Department Family Practice [facility] ) Diet: Low Fat Addtl Attending Provider Instructions: Mrs Lopez You came to the hospital with worsening back pain. You were evaluated with scans which showed abnormalities You were evaluated by graves registration specialist. Your pain is better controlled. Please ensure follow up with graves registration specialist outpatient as discussed Please ensure follow up with your Primary Doctor It was a pleasure taking care of you. Pending Studies at Discharge: No Stand-Alone Forms: My [id number], Smoking Cessation Medications and DC Order Prescriptions: New acetaminophen [Tylenol Extra Strength] 500 mg Tablet 1,000 mg PO Q8H Qty: 90 0RF gabapentin 100 mg Capsule 100 mg PO BID Qty: 60 0RF celecoxib [Celebrex] 200 mg capsule 200 mg PO DAILY Qty: 30 0RF Continued diclofenac sodium 1 % gel 1 ea topical QID PRN (Reason: Pain) Rx Instructions: apply 4 times a day as needed for pain not to exceed 16 grams to a single joint a day simvastatin 20 mg tablet 20 mg PO QPM cyclobenzaprine 10 mg tablet 10 mg PO UD lidocaine [Lidocaine Pain Relief] 4 % Adhesive Patch,Medicated 1 patch TOPICAL DAILY PRN (Reason: Pain, Moderate) Discontinued ibuprofen [Advil] 200 mg Tablet 200 mg PO UD PRN (Reason: discomfort) Discharge Orders: Discharge Order (Routine); Ordered 08/04/23 Ordered By: Addie Callahan Admission Data Admit Date/Time: 08/01/23 15:00 Attending Provider: Addie Callahan I. Admit Provider: Lilian Keen Primary Care Provider: Elijah Whittaker Other Providers: Lilian Keen; Maicol Taylor; Gena Dumas; Stevan Davalos Other Interventions: Discharge Summary Assessment (RN) Last Done: 08/04/23 13:32
== END 2023-08-04 14:21 | disposition home or self-care (01) | DRG 552 ==
LOC: ED 12:43 → SUATTDRO 15:00 → EDINP 15:00 → 3N 21:58